=== PATIENT | male | born 1935 | race Caucasian/White ===

== ENCOUNTER 2018-03-19 14:34 | Outpatient (CLI) | payer MEDICARE, OTHER ==
[2018-03-19] MEDS ORDERED: Gadobenate Dimeglumine 529 MG/1 ML (20ML VIAL) ONE (14:57)
--- NOTE | 2018-03-19 16:29 | MRI ---
MRI BRAIN WITH AND WITHOUT GADOLINIUM CONTRAST: 03/19/18 HISTORY: Abnormal gait for three weeks. FINDINGS: There is no evidence of acute intracranial hemorrhage or infarct. Diffuse cortical atrophy and chroni c ischemic small vessel disease are apparent. There is no mass effect, shift of midline structures or abnormal areas of contrast enhancement. IMPRESSION: Prominent diffuse cortical atrophy. Moderate chronic ischemic small vessel disease. POS: [facility]
== END 2018-03-19 14:35 | disposition home or self-care (01) ==
LOC: TBSIIMAG 14:34
PROVIDERS: ATTEND Psychiatry & Neurology Neurology
DX: R26.9 Unspecified abnormalities of gait and mobility (principal); I82.409 Acute embolism and thrombosis of unspecified deep veins of unspecified lower extremity; G31.9 Degenerative disease of nervous system, unspecified; I67.82 Cerebral ischemia
CPT/HCPCS: 70553; 82565; A9579

== ENCOUNTER 2018-04-24 08:56 | Day surgery (SDC) | payer MEDICARE, OTHER ==
[2018-04-23 14:15] VITALS: BMI 25.7
[~2018-04-24 08:56] MED LIST: Prevnar 13-Val Conj/PF 0.5 ML SYRINGE IM ONE
[2018-04-24 09:35] VITALS: BP 127/78; TEMP 97.5
--- NOTE | 2018-04-24 13:08 | RAD ---
LUMBAR PUNCTURE: HISTORY: Gait disturbance. High volume tap requested. COMPARISON: None. EXPOSURE: 228.7 millicuries per m2 for 0.6 minutes. FINDINGS: Two view binder and wrapper packer lumbar spine radiograph demonstrates vacuum disk phenomenon at L5-S1. Five lumbar typ e vertebral bodies with preservation of vertebral body height. No fracture. Successful lumbar puncture. A total of 31.5 mL of clear CSF was aspirated. There were no immediate post procedure complications. TECHNIQUE: Consent obtained to perform a lumbar puncture for high volume tap. The patient's back was evaluated. The L2-L3 level was deemed appropriate. The skin was prepped and draped in a sterile fashion. Lid ocaine 1% buffered with sodium bicarbonate was used for local anesthesia. Under fluoroscopic guidanc e, a 20 gauge spinal needle was advanced into the CSF space. Opening pressure was 15 cm of water. A total of 31.5 mL of clear CSF was collected. The patient tolerated the procedure well. No immediat e or post procedure complications. IMPRESSION: 1. A total of 31.5 mL of clear cerebrospinal fluid was collected. 2. Opening pressure was 15 cm of water. POS: [facility]
== END 2018-04-24 12:40 | disposition home or self-care (01) ==
LOC: RAD 08:56
PROVIDERS: ATTEND Psychiatry & Neurology Neurology
PROC: 009U3ZX Drainage of Spinal Canal, Percutaneous Approach, Diagnostic (ICD-10-PCS; principal; 2018-04-24)
PROC: B01BYZZ Fluoroscopy of Spinal Cord using Other Contrast (ICD-10-PCS; 2018-04-24)
DX: R26.9 Unspecified abnormalities of gait and mobility (principal); R41.89 Other symptoms and signs involving cognitive functions and awareness; K21.9 Gastro-esophageal reflux disease without esophagitis; Z79.899 Other long term (current) drug therapy
CPT/HCPCS: 62270; 82945; 84157; 86592; 89051; 97110; 97139; G8978; G8979

== ENCOUNTER 2018-06-10 12:34 | Outpatient (CLI) | payer MEDICARE, OTHER ==
--- NOTE | 2018-06-10 12:52 | RAD ---
TWO VIEWS CHEST: Comparison: 02-02-17 History: Dyspnea. FINDINGS: Two views of the chest shows normal sized cardiomediastinal silhouette. Increased interstitial markin gs are present. Biapical pleural thickening is seen. There is no evidence of consolidation, mass, or pleural effusion. Degenerative changes are seen in the spine. IMPRESSION: No evidence of acute cardiopulmonary disease. POS: [facility]
== END 2018-06-10 12:35 | disposition home or self-care (01) ==
LOC: RAD 12:34
PROVIDERS: ATTEND Internal Medicine Pulmonary Disease
DX: R06.00 Dyspnea, unspecified (principal)
CPT/HCPCS: 71046

== ENCOUNTER 2018-09-25 12:49 | Outpatient (CLI) | payer MEDICARE, OTHER | END 2018-09-25 12:50 | disposition home or self-care (01) | LOC: CP 12:49 | PROVIDERS: ATTEND Internal Medicine Pulmonary Disease | DX: J84.112 Idiopathic pulmonary fibrosis (principal); I82.409 Acute embolism and thrombosis of unspecified deep veins of unspecified lower extremity | CPT/HCPCS: 36415; 85610; 94060; 94727; 94729 ==

== ENCOUNTER 2018-11-15 10:39 | Emergency (ER) | payer MEDICARE, OTHER ==
[2018-11-15] MEDS ORDERED: Cyclobenzaprine 10 MG TAB ONE (11:12)
[2018-11-15] MEDS ORDERED: Ibuprofen 600 MG TAB ONE (11:12)
== END 2018-11-15 11:17 | disposition home or self-care (01) ==
LOC: SCSER 10:39
DX: M54.5 Low back pain (principal); I10 Essential (primary) hypertension; Z86.718 Personal history of other venous thrombosis and embolism; Z79.01 Long term (current) use of anticoagulants
CPT/HCPCS: 99283

== ENCOUNTER 2019-01-31 08:57 | Inpatient (IN) | payer MEDICARE, OTHER ==
[2019-01-31 09:33] LABS: #Basophils 0.1 thou/uL (0.0-0.2); #Eosinphils 0.1 thou/uL (0.0-0.7); #Lymphocytes 0.8 thou/uL (1.20-3.40); #Monocytes 0.7 thou/uL (0.11-0.59); #Neutrophils 12.4 thou/uL (1.40-6.50); %Basophils 0.8 % (0.0-1.0); %Eosinophils 0.4 % (0.0-10.0); %Lymphocytes 5.3 % (21.0-51.0); %Monocytes 5.2 % (0.0-10.0); %Neutrophils 88.3 % (42.0-75.0); Mean Corpuscular HGB CONC 33.3 g/dL (32.0-36.0); Mean Corpuscular Hemoglobin 30.5 pg (27.0-31.0); Mean Corpuscular Volume 91.6 fL (78.0-98.0); Platelet Count 300 thou/uL (130-400); RBC Distribution Width 11.5 % (11.5-14.5); Red Blood Cell (RBC) Count 4.28 mill/uL (4.70-6.10); White Blood Cell (WBC) Count 14.1 thou/uL (4.8-10.8)
[2019-01-31 09:42] LABS: ALT (SGPT) 28 U/L (8-55); AST (SGOT) 101 U/L (5-34); Albumin 3.6 g/dL (3.4-4.8); Alkaline Phosphatase 86 U/L (40-150); Anion Gap 16 mmol/L (10-20); BUN (Urea Nitrogen) 18 mg/dL (8.4-25.7); Bilirubin, Total 0.9 mg/dL (0.2-1.2); Calc. Creatinine Clearance 0 mL/min (70-130); Calcium 8.8 mg/dL (7.8-10.44); Carbon Dioxide 22 mmol/L (23-31); Chloride 107 mmol/L (98-107); Estimated GFR-MDRD 80; Globulin 3.6 g/dL (2.4-3.5); Glucose 147 mg/dL (83-110); Lipase 22 U/L (8-78); Potassium 3.5 mmol/L (3.5-5.1); Protein, Total 7.2 g/dL (5.8-8.1); Sodium 141 mmol/L (136-145)
[2019-01-31] MEDS ORDERED: cefTRIAXone\\ROCEPHIN 2 GM VIAL ONE (09:45)
[2019-01-31] MEDS ORDERED: Sodium Chloride 0.9% 100 ML ONE ×2 (09:45→10:42)
--- NOTE | 2019-01-31 09:53 | RAD ---
CHEST 2 VIEWS: Date: 01/31/19 HISTORY: Difficulty breathing. Cough. COMPARISON: 01/24/19. FINDINGS: There are chronic changes of the lung parenchyma with superimposed infiltrate. No masses or consolida tion. No pleural effusion or pneumothorax. Normal cardiac silhouette. IMPRESSION: Infiltrate superimposed upon chronic fibrotic change. POS: [facility]
[2019-01-31 10:05] LABS: Prothrombin Time 47.5 SEC (12.0-14.7)
[2019-01-31 10:11] LABS: INR-International Normal Ratio 5.2
[2019-01-31 10:13] LABS: CKMB 78.3 ng/mL (0-6.6)
[2019-01-31] MEDS ORDERED: Aspirin Chewable 81 MG TAB ONE (10:37)
[2019-01-31] MEDS ORDERED: Cefepime 2 GM VIAL ONE (10:41)
[2019-01-31 13:01] VITALS: BMI 24.3
[2019-01-31 13:35] LABS: Lactic Acid 1.5 mmol/L (0.5-2.2)
[2019-01-31 13:50] LABS: Troponin I 15.767 ng/mL (< 0.028)
--- NOTE | 2019-01-31 14:13 | CON ---
DATE OF CONSULTATION: 01/31/2019 HISTORY OF PRESENT ILLNESS: This is an 83-year-old gentleman, who was seen before in the past. He moved from [place] with a diagnosis of pulmonary fibrosis, been there numerous times, and is on low-flow O2 and Breo inhaler once a day. He apparently went to see his primary care physician last week with symptoms of cough, shortness of breath, and chest pain. X-ray was taken and he was not told about any results. He is taking Coumadin, and from time to time, he has a bloody sputum. In fact, his INR is markedly elevated at 5.3. He has had more difficulty breathing. Now, he tells me that he is moving to [place] area in the next month to relocate. On most days, he can barely walk between 100 feet without getting markedly short of breath. PAST MEDICAL HISTORY: Pertinent for pulmonary fibrosis, DVT, and squamous cell carcinoma. SOCIAL/FAMILY HISTORY: Unremarkable. No alcohol or tobacco abuse. HOME MEDICATIONS: 1. Coumadin 3 mg. 2. Omeprazole 5. 3. Vitamins. 4. Advair inhaler. 5. B12. ALLERGIES: NONE. REVIEW OF SYSTEMS: Unremarkable. PHYSICAL EXAMINATION: VITAL SIGNS: On 100% his sats were anywhere from 96 to 100. His respirations are about 25, pulse 80, blood pressure 98. GENERAL: He is awake, alert, responsive, no edema. CHEST: Decreased breath sounds. Bilateral crackles. CARDIAC: Normal S1 and S2. No gallops. ABDOMEN: No mass. LABORATORY DATA: White count 14,000, H and H 13 and 39, and platelet count 300. INR is 5.2 and PT is 47.5. Lytes are normal. Troponin is elevated at 13.45. BNP is 344. EKG shows left axis nonspecific changes, but no acute injury seen. X-ray shows worsening extensive bilateral interstitial infiltrate that had been more pronounced in left base. IMPRESSION: Ghd-OA-vfxcedj elevation myocardial infarction, elevated troponin, extensive pulmonary fibrosis, worsening, with superimposed left-sided pneumonia, prolonged PT/INR, history of deep venous thrombosis in the past. PLAN: Started steroids, antibiotics, neb treatment. Await input from Cardiology. Prognosis is poor. We will discuss with family as they arrive. Consultation note, 70 minutes, 50% direct patient care. Job ID: [id number]
[2019-01-31] MEDS ORDERED: Bisacodyl 10 MG SUPP PR PRN (15:07)
[2019-01-31] MEDS ORDERED: Ondansetron PF 4 MG/2 ML Vial IVP PRN (15:07)
[2019-01-31] MEDS ORDERED: Acetaminophen 325 MG TAB PO PRN (15:07)
[2019-01-31] MEDS ORDERED: Acetaminophen 650 MG Suppository PR PRN (15:07)
[2019-01-31] MEDS ORDERED: Nitroglycerin 0.4 MG TAB (25 Tab Bottle) SL PRN (15:07)
[2019-01-31] MEDS ORDERED: Morphine 2 MG/ML SYRINGE SLOW IVP PRN (15:07)
[2019-01-31 15:47] LABS: Critical Call Chem Troponin I DECREASED
--- NOTE | 2019-01-31 16:13 | CON ---
DATE OF CONSULTATION: 01/31/2019 REASON FOR CONSULTATION: Elevated troponin. HISTORY OF PRESENT ILLNESS: Mr. Goncalves is an 83-year-old gentleman, who has no previous history of underlying coronary artery disease. He does have a history of pulmonary fibrosis. He states he has had increased shortness of breath and cough over the last three months. He does have a left-sided lower rib chest pain from coughing. Otherwise, no current symptoms. His shortness of breath progressed, and he decided to go to the emergency room. Initially, it was felt he had pneumonia. He had significant diffuse infiltrates present, likely due to CHF. Again, he has no previous history of underlying coronary artery disease or CHF. He has been seen and evaluated by Dr. Champ Aceves in the past. PAST MEDICAL HISTORY: Pulmonary fibrosis, previous DVT on anticoagulation therapy, squamous cell carcinoma. MEDICATIONS: Include omeprazole, Coumadin, vitamin, Advair, B12. ALLERGIES: NONE. REVIEW OF SYSTEMS: A 10-point review of systems is reviewed and as above, negative. PHYSICAL EXAMINATION: GENERAL: Patient is a pleasant male, who is in no acute distress. The patient appears their stated age. VITAL SIGNS: Blood pressure 130/83, pulse 117, temperature 99.2. NEUROLOGIC: The patient is alert and oriented x3 with no focal neurologic deficits. HEENT: Sclerae without icterus. Mouth has moist mucous membranes with normal pallor. NECK: No JVD. Carotid upstroke brisk. No bruits bilaterally. LUNGS: Crackles noted bilaterally. BACK: No scoliosis or kyphosis. CARDIAC: Regular rate and rhythm with normal S1 and S2. No S3 or S4 noted. No significant rubs, murmurs, thrills, or gallops noted throughout the precordium. PMI is not displaced. There is no parasternal heave. ABDOMEN: Soft, nontender, nondistended. No peritoneal signs present. No hepatosplenomegaly. No abnormal striae. EXTREMITIES: 2+ femoral and 2+ dorsalis pedis pulses. No cyanosis, clubbing, or edema. SKIN: No gross abnormalities. PERTINENT LABORATORY DATA: Hemoglobin 13, hematocrit 39.2, white blood cell count 14.1, creatinine 0.91. CK-MB of 78. Peak troponin 15. EKG; normal sinus rhythm and nonspecific ST-T wave changes. INR 5.3. IMPRESSION: 1. Elevated troponin. 2. Shortness of breath. 3. Pulmonary fibrosis. RECOMMENDATIONS: Mr. Goncalves currently has no symptoms suggesting angina. His EKG does not show any acute changes. At this point, recommend conservative therapy. His BNP also is not significantly elevated at 344. I did discuss case at length with Dr. Champ Aecves. He does not think his pulmonary fibrosis has progressed to marked pulmonary fibrosis. At this point, we will challenge with IV Lasix and repeat his chest x-ray on Sunday. We would like to have his INR decreased prior to proceeding with angiography. I did discuss conservative versus a more aggressive approach. After discussing risks and benefits of both, family has opted for proceeding with a more aggressive approach such as coronary angiography. I will hold off on heparin given elevated INR. We will recheck in a.m. There is no active bleeding present. Job ID: [id number] MTDD
--- NOTE | 2019-01-31 16:18 | HP ---
PRIMARY CARE PROVIDER: Dr. Benedict Dee. CHIEF COMPLAINT: Cough. HISTORY OF PRESENT ILLNESS: Mr. Goncalves is a pleasant 83-year-old gentleman, who was seen at [facility] following transfer from [facility] Room on January 31, 2019. The patient has a history of pulmonary fibrosis and uses home oxygen at 2 L/minute. He reports chronic cough that worsened over the last 3 weeks. The cough is productive of yellow sputum. He also reports having blood in the sputum on two occasions. He reported that his daughter had flu-like symptoms 3 weeks ago. He denies any nausea or vomiting. He does report left-sided pleuritic chest pain. He denies any abdominal pain. He presented to the emergency room because of ongoing cough. He also reports shortness of breath that is worse with exertion. REVIEW OF SYSTEMS: All other systems reviewed and found to be negative. PAST MEDICAL HISTORY: Deep vein thrombosis, pulmonary fibrosis. SURGICAL HISTORY: Prostatectomy and left ear squamous cell carcinoma surgery. SOCIAL HISTORY: No history of tobacco use or recreational drug use. Rare alcohol use. FAMILY HISTORY: No family history of premature coronary artery disease. ALLERGIES: NO KNOWN DRUG ALLERGIES. CURRENT MEDICATIONS: 1. Warfarin 3 mg daily, none on Sunday, and 4.5 mg on Sunday and Sunday. 2. Flexeril 10 mg every 8 hours as needed. CODE STATUS: I discussed his code status. He is a full code. PHYSICAL EXAMINATION: GENERAL: On examination, Mr. Goncalves is awake and alert, in moderate respiratory distress. VITAL SIGNS: Blood pressure is 132/91, pulse 109, respiratory rate 25, and oxygen saturation 91% on Ventimask. He is afebrile. EYES: No scleral icterus, no conjunctival pallor. ENT: Moist mucosal membranes, no oropharyngeal erythema or exudates. NECK: Supple, nontender, trachea is midline. RESPIRATORY: Accessory muscles of breathing are active. Chest wall movements are symmetric bilaterally. He has bilateral crackles. CARDIOVASCULAR: S1 and S2 are heard, tachycardic and regular. Peripheral pulses are palpable. No carotid bruit, no pericardial rub. ABDOMEN: Soft, nontender, bowel sounds heard, no hepatomegaly, no splenomegaly. NEUROLOGIC: Cranial nerves 2 through 12 are intact, deep tendon reflexes 2+. MUSCULOSKELETAL: Power is 5/5 in all four extremities. LYMPHATIC: No cervical lymphadenopathy. SKIN: No rashes or subcutaneous nodules. PSYCHIATRIC: Normal mood, normal affect, the patient is oriented to person, place, and time. DIAGNOSTIC STUDIES: Mr. Goncalves's labs and investigations were reviewed. I reviewed his electrocardiogram, which shows sinus tachycardia, no ST changes to suggest an acute coronary syndrome. I also reviewed his chest x-ray, which shows pulmonary fibrosis with pulmonary infiltrate. He has leukocytosis with 14,100 white cells, of which 88% are neutrophils, normocytic anemia with hemoglobin 13, normal platelet count, INR elevated at 5.2, normal sodium, normal potassium, elevated AST of 101, normal total bilirubin, normal ALT, normal lipase, elevated BNP of 344, and elevated troponin-I of 13.458. Lactic acid is elevated at 4. ASSESSMENT AND PLAN: Mr. Goncalves is a pleasant 83-year-old gentleman, who was seen at [facility] on January 31, 2019. His problem list includes: 1. Acute on chronic hypoxic respiratory failure: Mr. Goncalves is presenting with acute on chronic hypoxic respiratory failure, most likely secondary to pneumonia. He will be admitted to [facility] for further management. 2. Pneumonia: He has been started on cefepime, which I will continue. He will also receive bronchodilators and steroids. 3. Pwf-AK-uckrmprto myocardial infarction: Jel-SC-rmlifcrux myocardial infarction versus qjd-XL-odnxnkiwb myocardial infarction type 2 secondary to demand ischemia. We will check 2D echocardiogram. Cardiology Service is being consulted. The patient has received aspirin at [facility] Room, which I will continue. 4. Coagulopathy: Hold warfarin for now. I request Pharmacy to manage warfarin. 5. Lactic acidosis: Likely secondary to pneumonia, recheck lactic acid level. 6. Elevated AST: Isolated elevation of AST in the setting of otherwise normal liver profile, recheck LFTs. Many thanks for allowing me to participate in your patient's care. Please feel free to contact me with any questions or concerns. LEVEL OF RISK: High. LEVEL OF COMPLEXITY: High. Job ID: [id number]
[2019-01-31] MEDS ORDERED: Guaifenesin DM 100-10/5 ML UDCUP PO PRN (16:38)
[2019-01-31] MEDS: Benzonatate 100 MG CAP PO SCH ×2 (16:46→20:44)
[2019-01-31] MEDS ORDERED: Phytonadione 3 MG in Sodium Chloride 0.9% 50 ML IVPB SCH (17:00)
[2019-01-31] MEDS: methylPREDNISolone Sod Succ 40 MG VIAL IVP SCH ×2 (17:09→23:58)
[2019-01-31] MEDS ORDERED: Furosemide 40 MG/4 ML VIAL SLOW IVP SCH (17:30)
[2019-01-31 18:47] LABS: CKMB 60.6 ng/mL (0-6.6)
[2019-01-31] MEDS: Mometasone/Formoterol 120 PUFF INHALER INH SCH (19:02)
[2019-01-31] MEDS: Cefepime 2 GM in Sodium Chloride 0.9% 100 ML IVPB SCH (20:44)
[2019-02-01 04:35] LABS: #Lymphocytes 0.5 thou/uL (1.20-3.40); #Monocytes 0.2 thou/uL (0.11-0.59); #Neutrophils 13.4 thou/uL (1.40-6.50); %Basophils 0.1 % (0.0-1.0); %Eosinophils 0.2 % (0.0-10.0); %Lymphocytes 3.6 % (21.0-51.0); %Monocytes 1.6 % (0.0-10.0); %Neutrophils 94.4 % (42.0-75.0); Mean Corpuscular HGB CONC 33.2 g/dL (32.0-36.0); Mean Corpuscular Hemoglobin 31.3 pg (27.0-31.0); Mean Corpuscular Volume 94.3 fL (78.0-98.0); Mean Platelet Volume 7.5 fL (7.4-10.4); Platelet Count 264 thou/uL (130-400); RBC Distribution Width 11.5 % (11.5-14.5); Red Blood Cell (RBC) Count 3.83 mill/uL (4.70-6.10); White Blood Cell (WBC) Count 14.2 thou/uL (4.8-10.8)
[2019-02-01 04:50] LABS: INR-International Normal Ratio 2.5; Prothrombin Time 26.7 SEC (12.0-14.7)
[2019-02-01 04:58] LABS: Anion Gap 15 mmol/L (10-20); BUN (Urea Nitrogen) 19 mg/dL (8.4-25.7); Calc. Creatinine Clearance 65 mL/min (70-130); Calcium 8.3 mg/dL (7.8-10.44); Carbon Dioxide 21 mmol/L (23-31); Cardiac Risk 2.9 (Less than 4.5); Chloride 107 mmol/L (98-107); Cholesterol 106 mg/dl (< 200 Desired); Estimated GFR-MDRD 86; Glucose 167 mg/dL (83-110); HDL Cholesterol 36 mg/dL (>60 Neg Risk); LDL Cholesterol, Calculated 58 mg/dL; Potassium 3.5 mmol/L (3.5-5.1); Sodium 139 mmol/L (136-145); Triglycerides 60 mg/dL (Less than 150)
[2019-02-01 05:01] LABS: ALT (SGPT) 31 U/L (8-55); AST (SGOT) 102 U/L (5-34); Albumin 3.3 g/dL (3.4-4.8); Alkaline Phosphatase 98 U/L (40-150); Bilirubin, Direct 0.4 mg/dL (0.1-0.3); Protein, Total 6.4 g/dL (5.8-8.1)
[2019-02-01] MEDS: methylPREDNISolone Sod Succ 40 MG VIAL IVP SCH ×3 (05:15→17:38)
[2019-02-01] MEDS: Mometasone/Formoterol 120 PUFF INHALER INH SCH ×2 (06:46→19:27)
--- NOTE | 2019-02-01 08:27 | PDOC.CTH ---
Cardiology Progress Note - Subjective Better this am. No current complaints. Diuresing - Objective Vital Signs Temp Pulse Resp Pulse Ox 02/01/19 07:40 96 02/01/19 07:01 97.6 F 02/01/19 06:51 94 L 02/01/19 06:46 95 20 98 02/01/19 06:35 98 02/01/19 06:30 95 20 98 02/01/19 04:00 97.2 F L 02/01/19 02:14 95 01/31/19 23:59 107 H 22 H 97 01/31/19 23:00 97.6 F Weight 142 lb 4.8 oz 01/31/19 02/01/19 02/02/19 06:59 06:59 07:59 Intake Total 630 Output Total 1725 Balance -1095 - Physical Examination General/Neuro: alert & oriented x3, NAD Neck: carotid US brisk, no JVD present Lungs: other: (coarse and fine crackles present) - Labs Result Diagrams: 02/01/19 04:24 02/01/19 04:24 Troponin/CKMB CK-MB (CK-2) 60.6 ng/mL (0-6.6) H* 01/31/19 18:18 Troponin I 14.470 ng/mL (< 0.028) H* 01/31/19 15:09 - Assessment/Plan [id number] Pulmonary fibrosis Ischemia CM Continue to diurese Plan is to proceed with angio once his INR <2.0 No current symptoms of angina Increase troponin with downgoing CKMB yesterday Discussed the R/B with pt. and family Pt is agreeable and would like to proceed with angio. Recommend DCS. Will use coumadin as Rx and add plavix and ASA. Dc ASA after a few weeks.
[2019-02-01] MEDS: Benzonatate 100 MG CAP PO SCH ×3 (09:02→20:33)
[2019-02-01] MEDS: Lactinex Tablet PO SCH (09:02)
[2019-02-01] MEDS: Multivit, Therapeutic 1 TAB PO SCH (09:03)
[2019-02-01] MEDS: Aspirin 325 mg Enteric Coated Tablet PO SCH (09:03)
[2019-02-01] MEDS: Cefepime 2 GM in Sodium Chloride 0.9% 100 ML IVPB SCH ×2 (09:03→20:33)
[2019-02-01] MEDS: Stress 600 With Zinc 1 TAB PO SCH (09:40)
--- NOTE | 2019-02-01 11:26 | PRG ---
DATE OF SERVICE: 02/01/2019 SUBJECTIVE: This morning, he said he is feeling better, still coughing some bloody sputum. His EF was measured at 30% to 35%. He said he is slightly less short of breath. OBJECTIVE: VITAL SIGNS: Blood pressure 124/80, sats on high-flow O2 35 L is 98%, pulse 104, respiratory rate 20. CHEST: Bilateral rhonchi and crackles. CARDIAC: Normal S1, S2. No gallops. ABDOMEN: No masses. INR is 2.5, PT is 26. White count 14,000, H and H 12 and 36. His troponin is 14. CK is 60. IMPRESSION: 1. Congestive heart failure, cardiomyopathy. 2. Pulmonary fibrosis. 3. Possibly pneumonia, hemoptysis, history of deep venous thrombosis. PLAN: Continue neb treatments, empiric antibiotics, supportive care. We will follow cath tomorrow. Job ID: [id number]
[2019-02-01] MEDS ORDERED: Communication Order-Pharmacy FS SCH (11:45)
--- NOTE | 2019-02-01 11:53 | RAD ---
RADIOGRAPH CHEST 1 VIEW: Date: 02/01/2019. Time: 11:18 a.m. HISTORY: An 83-year-old male with congestive heart failure. COMPARISON: 01/31/2019, 9:32 a.m. FINDINGS: Diffuse bilateral interstitial densities. More focal alveolar infiltrate involving left mid and lowe r lung zones appear slightly worse on the current study compared to the previous. No pneumothorax. IMPRESSION: 1. Interval worsening of now alveolar infiltrates in left lower and mid lung zones, worrisome for le ft-sided pneumonia. 2. Bilateral interstitial densities, which could represent chronic fibrotic changes, mild pulmonary interstitial edema, or a combination of both. 3. Recommend continued followup. EDDIE [] POS: [facility]
[2019-02-01] MEDS: Sodium Chloride 0.9% 1,000 ML IV SCH ×2 (12:41→22:46)
--- NOTE | 2019-02-01 14:21 | PDOC.PN ---
- Subjective Encounter Start Date: 02/01/19 Encounter Start Time: 09:20 Pt seen for followup re: acute on chronic hypoxic respiratory failure. Says he feels slightly better. - Objective Resuscitation Status - Order Detail: 01/31/19 15:07 Resuscitation Status Routine Resuscitation Status: FULL: Full Resuscitation Discussed with: ana maria NAIK Reviewed: Yes Vital Signs & Weight: Vital Signs (12 hours) Temp Pulse Resp Pulse Ox 02/01/19 13:45 115 H 24 H 94 L 02/01/19 11:18 97.8 F 02/01/19 07:40 96 02/01/19 07:01 97.6 F 02/01/19 06:51 94 L 02/01/19 06:46 95 20 98 02/01/19 06:35 98 02/01/19 06:30 95 20 98 02/01/19 04:00 97.2 F L Weight Weight 142 lb 4.8 oz Most Recent Monitor Data Heart Rate from ECG 114 NIBP 133/100 NIBP BP-Mean 111 Respiration from ECG 31 SpO2 92 I&O: 01/31/19 02/01/19 02/02/19 06:59 06:59 07:59 Intake Total 630 Output Total 1725 Balance -1095 Result Diagrams: 02/01/19 04:24 02/01/19 04:24 EKG Reviewed by me: Yes (Tele: NSR) Phys Exam - Physical Examination Constitutional: NAD HEENT: moist MMs, sclera anicteric, oral pharynx no lesions, 2+ tonsils Neck: no nodes, no JVD, supple, full ROM Oracio crackles Cardiovascular: RRR, no rub S1, S2 Gastrointestinal: soft, non-tender, no distention, positive bowel sounds Neurological: moves all 4 limbs Psychiatric: normal affect, A&O x 3 Dx/Plan (1) Acute on chronic respiratory failure with hypoxia Code(s): J96.21 - ACUTE AND CHRONIC RESPIRATORY FAILURE WITH HYPOXIA Status: Acute Comment: secondary to pneumonia and CHF (2) Pneumonia Code(s): J18.9 - PNEUMONIA, UNSPECIFIED ORGANISM Status: Acute Comment: continue antibiotics as below (3) NSTEMI (non-ST elevated myocardial infarction) Code(s): I21.4 - NON-ST ELEVATION (NSTEMI) MYOCARDIAL INFARCTION Status: Acute Comment: For cath on Sunday (4) Coagulopathy Status: Acute Comment: INR improved to 2.5 (5) Acute systolic CHF (congestive heart failure), NYHA class 3 Code(s): I50.21 - ACUTE SYSTOLIC (CONGESTIVE) HEART FAILURE Status: Acute Comment: continue diuretics (6) Pulmonary fibrosis Code(s): J84.10 - PULMONARY FIBROSIS, UNSPECIFIED Status: Chronic - Plan plan discussed w/ family, continue antibiotics * . Review of Systems - Review of Systems Constitutional: weakness. negative: fever, chills, sweats, malaise Respiratory: Cough, Hemoptysis, SOB with Excertion, Sputum. negative: Dry, Shortness of Breath, Pleuritic Pain, Wheezing Cardiovascular: orthopnea. negative: chest pain, palpitations, paroxysmal nocturnal dyspnea, edema, light headedness Gastrointestinal: negative: Nausea, Vomiting, Abdominal Pain, Diarrhea, Constipation, Melena, Hematochezia Genitourinary: negative: Dysuria, Frequency, Incontinence, Hematuria, Retention Skin: negative: Rash, Lesions, [place], Bruising - Medications/Allergies Allergies/Adverse Reactions: Allergies Allergy/AdvReac Type Severity Reaction Status Date / Time No Known Allergies Allergy Verified 01/31/19 12:55 Medications: Current Medications Acetaminophen (Tylenol) 650 mg PO Q4H PRN PRN Reason: Headache/Fever/Mild Pain (1-3) Last Admin: 01/31/19 20:44 Dose: 650 mg Acetaminophen (Tylenol) 650 mg NC Q4H PRN PRN Reason: Headache/Fever/Mild Pain (1-3) Acidophilus (Floranex) 1 tab PO DAILY FOR[facility]LY [facility], [facility] Last Admin: 02/01/19 09:02 Dose: 1 tab Albuterol/Ipratropium (Duoneb) 3 ml NEB [id number] [facility], [facility] Last Admin: 02/01/19 13:45 Dose: 3 ml Aspirin (Ecotrin) 325 mg PO DAILY [facility], [facility] Last Admin: 02/01/19 09:03 Dose: 325 mg Benzonatate (Tessalon) 100 mg PO TID [facility] Last Admin: 02/01/19 09:02 Dose: 100 mg Bisacodyl (Dulcolax) 10 mg NC DAILYPRN PRN PRN Reason: Constipation Cholecalciferol (Vitamin D3) 1,000 units PO DAILY [facility], [facility] Last Admin: 02/01/19 09:03 Dose: 1,000 units Furosemide (Lasix) 60 mg SLOW IVP 0600,1400 [facility], [facility] Guaifenesin/Dextromethorphan (Robitussin Dm) 5 ml PO TID PRN PRN Reason: Cough Cefepime HCl 2 gm/ Sodium (Chloride) 100 mls @ 200 mls/hr IVPB Q12HR [facility], [facility] Last Admin: 02/01/19 09:03 Dose: 100 mls Sodium Chloride (Normal Saline 0.9%) 1,000 mls @ 100 mls/hr IV .Q10H [facility], [facility] Last Admin: 02/01/19 12:41 Dose: 1,000 mls Methylprednisolone Sodium Succinate (Solu-Medrol) 40 mg IVP Q6HR [facility] Last Admin: 02/01/19 11:31 Dose: 40 mg Miscellaneous Medication (Pharmacy To Dose) 1 each PO PRN PRN PRN Reason: Pharmacy to dose Miscellaneous Medication (Pharmacy To Dose) 1 each PO PRN PRN PRN Reason: Pharmacy to dose Mometasone Furoate/Formoterol Fumar (Dulera 200 Mcg/5 Mcg Inhaler) 2 puff INH BID-RT [facility] Last Admin: 02/01/19 06:46 Dose: 2 puff Morphine Sulfate (Morphine) 2 mg SLOW IVP Q5MIN PRN PRN Reason: Chest Pain Multivitamins (Theragran) 1 tab PO DAILY [facility] Last Admin: 02/01/19 09:03 Dose: 1 tab Multivitamins/Zinc (Stress 600 With Zinc) 1 tab PO DAILY [facility] Last Admin: 02/01/19 09:40 Dose: 1 tab Nitroglycerin (Nitrostat) 0.4 mg SL Q5MIN PRN PRN Reason: Chest Pain Ondansetron HCl (Zofran) 4 mg IVP Q6H PRN PRN Reason: Nausea/Vomiting Pantoprazole Sodium (Protonix) 40 mg PO DAILY [facility] Last Admin: 02/01/19 09:03 Dose: 40 mg
[2019-02-01] MEDS: Furosemide 40 MG/4 ML VIAL SLOW IVP SCH (14:32)
[2019-02-02] MEDS: methylPREDNISolone Sod Succ 40 MG VIAL IVP SCH ×4 (00:21→17:58)
[2019-02-02 05:27] LABS: INR-International Normal Ratio 2.4; Prothrombin Time 26.3 SEC (12.0-14.7)
[2019-02-02 05:51] LABS: Band 15 % (5-11); Lymphocytes 2 % (21-51); MDiff Complete? YES; Mean Corpuscular HGB CONC 32.8 g/dL (32.0-36.0); Mean Corpuscular Hemoglobin 30.8 pg (27.0-31.0); Mean Corpuscular Volume 94.1 fL (78.0-98.0); Mean Platelet Volume 7.9 fL (7.4-10.4); Monocytes 4 % (0-10); Neutrophil 79 % (42-75); Platelet Count 276 thou/uL (130-400); Platelet Morphology Comment Appears Adequate; RBC Distribution Width 11.7 % (11.5-14.5); RBC Morphology Normal; Red Blood Cell (RBC) Count 4.22 mill/uL (4.70-6.10); White Blood Cell (WBC) Count 23.4 thou/uL (4.8-10.8)
[2019-02-02 05:52] LABS: Anion Gap 16 mmol/L (10-20); BUN (Urea Nitrogen) 28 mg/dL (8.4-25.7); Calc. Creatinine Clearance 49 mL/min (70-130); Calcium 8.5 mg/dL (7.8-10.44); Carbon Dioxide 25 mmol/L (23-31); Chloride 103 mmol/L (98-107); Estimated GFR-MDRD 67; Glucose 203 mg/dL (83-110); Sodium 141 mmol/L (136-145)
[2019-02-02 05:55] LABS: Potassium 2.9 mmol/L (3.5-5.1)
[2019-02-02] MEDS: Furosemide 40 MG/4 ML VIAL SLOW IVP SCH ×2 (06:38→14:49)
[2019-02-02] MEDS: Benzonatate 100 MG CAP PO SCH ×3 (06:40→20:51)
[2019-02-02] MEDS: Multivit, Therapeutic 1 TAB PO SCH (06:40)
[2019-02-02] MEDS: Aspirin 325 mg Enteric Coated Tablet PO SCH (06:40)
[2019-02-02] MEDS: Lactinex Tablet PO SCH (06:40)
[2019-02-02] MEDS: Sodium Chloride 0.9% 1,000 ML IV SCH ×2 (06:41→17:59)
[2019-02-02] MEDS: Mometasone/Formoterol 120 PUFF INHALER INH SCH ×2 (07:10→22:07)
--- NOTE | 2019-02-02 08:46 | PDOC.CTH ---
Cardiology Progress Note - Subjective Had difficlut night. No sleep. Continues with high flow O2 - Objective Vital Signs Temp Pulse Resp Pulse Ox 02/02/19 07:57 94 L 02/02/19 07:13 97.3 F L 02/02/19 07:10 105 H 24 H 93 L 02/02/19 07:02 93 L 02/02/19 07:00 105 H 24 H 93 L 02/02/19 04:00 97.7 F 02/02/19 03:24 91 L 02/02/19 00:00 97.7 F 02/01/19 23:35 106 H 21 H 90 L Weight 142 lb 4.8 oz 02/01/19 02/02/19 02/03/19 05:59 06:59 06:59 Intake Total Output Total Balance - Physical Examination General/Neuro: alert & oriented x3, NAD Neck: carotid US brisk, no JVD present Lungs: other: (crackles better) Heart: PMI normal, RRR Abdomen: no HSM, NT/ND, soft Extremities: + femoral B - Labs Result Diagrams: 02/02/19 04:08 02/02/19 04:08 Troponin/CKMB CK-MB (CK-2) 60.6 ng/mL (0-6.6) H* 01/31/19 18:18 Troponin I 14.470 ng/mL (< 0.028) H* 01/31/19 15:09 - Assessment/Plan SD type I Pulmonary fibrosis Ischemia CM Pt continues to require high flow oxygen No current symptoms of angina Continue to diurese\ Add lovenox now that INR has decreased plan on angio in am
[2019-02-02] MEDS ORDERED: Enoxaparin Sodium 60 MG/0.6 ML SYRINGE SC SCH (09:00)
[2019-02-02] MEDS: Cefepime 2 GM in Sodium Chloride 0.9% 100 ML IVPB SCH ×2 (09:40→20:51)
[2019-02-02] MEDS: Stress 600 With Zinc 1 TAB PO SCH (09:40)
--- NOTE | 2019-02-02 11:28 | PRG ---
DATE OF SERVICE: 02/02/2019 SUBJECTIVE: This morning, he is better, he is less short of breath, still requiring high-flow O2 at 60 L to maintain saturation of 90%. OBJECTIVE: VITAL SIGNS: Blood pressure 120/80, respiratory rate 18, pulse 80. CHEST: Decreased breath sounds. No wheezing. Bilateral crackles. CARDIAC: Normal S1, S2. No gallops. ABDOMEN: No masses. LABORATORY DATA: White count 23,000. All cultures are negative. ASSESSMENT: TN, CHF, pulmonary fibrosis, superimposed pneumonia. He is on Maxipime, neb treatments, steroids. Plan is to undergo cardiac cath in the next day or two. Job ID: [id number]
--- NOTE | 2019-02-02 14:05 | PDOC.PN ---
- Subjective Encounter Start Date: 02/02/19 Encounter Start Time: 10:40 Pt seen for followup re; acute on chronic hypoxic respiratory failure. Had confusion last night, now resolved. - Objective Resuscitation Status - Order Detail: 01/31/19 15:07 Resuscitation Status Routine Resuscitation Status: FULL: Full Resuscitation Discussed with: patient HEENA Reviewed: Yes Vital Signs & Weight: Vital Signs (12 hours) Temp Pulse Resp Pulse Ox 02/02/19 12:00 96.8 F L 02/02/19 11:02 90 L 02/02/19 07:57 94 L 02/02/19 07:13 97.3 F L 02/02/19 07:10 105 H 24 H 93 L 02/02/19 07:02 93 L 02/02/19 07:00 105 H 24 H 93 L 02/02/19 04:00 97.7 F 02/02/19 03:24 91 L Weight Weight 142 lb 4.8 oz Most Recent Monitor Data Heart Rate from ECG 111 NIBP 102/72 NIBP BP-Mean 82 Respiration from ECG 32 SpO2 89 I&O: 02/01/19 02/02/19 02/03/19 05:59 06:59 06:59 Intake Total Output Total Balance Result Diagrams: 02/02/19 04:08 02/02/19 04:08 EKG Reviewed by me: Yes (Tele: NSR) Phys Exam - Physical Examination Constitutional: NAD HEENT: moist MMs, sclera anicteric, oral pharynx no lesions, 2+ tonsils Neck: no nodes, no JVD, supple, full ROM Oracio crackles Cardiovascular: RRR, no rub S1, S2 Gastrointestinal: soft, non-tender, no distention, positive bowel sounds Neurological: moves all 4 limbs Psychiatric: normal affect, A&O x 3 Dx/Plan (1) Acute on chronic respiratory failure with hypoxia Code(s): J96.21 - ACUTE AND CHRONIC RESPIRATORY FAILURE WITH HYPOXIA Status: Acute Comment: Improving, secondary to pneumonia and CHF (2) Pneumonia Code(s): J18.9 - PNEUMONIA, UNSPECIFIED ORGANISM Status: Acute Comment: Improving, continue intravenous antibiotics as below (3) NSTEMI (non-ST elevated myocardial infarction) Code(s): I21.4 - NON-ST ELEVATION (NSTEMI) MYOCARDIAL INFARCTION Status: Acute Comment: For cath tomorrow (4) Coagulopathy Status: Acute Comment: INR 2.4 today (5) Acute systolic CHF (congestive heart failure), NYHA class 3 Code(s): I50.21 - ACUTE SYSTOLIC (CONGESTIVE) HEART FAILURE Status: Acute Comment: continue diuretics (6) Pulmonary fibrosis Code(s): J84.10 - PULMONARY FIBROSIS, UNSPECIFIED Status: Chronic - Plan plan discussed w/ family, continue antibiotics, out of bed/ambulate * . Review of Systems - Review of Systems Constitutional: negative: fever, chills, sweats, weakness, malaise Respiratory: Cough, Dry, SOB with Excertion. negative: Shortness of Breath, Hemoptysis, Pleuritic Pain, Sputum, Wheezing Cardiovascular: negative: chest pain, palpitations, orthopnea, paroxysmal nocturnal dyspnea, edema, light headedness Gastrointestinal: negative: Nausea, Vomiting, Abdominal Pain, Diarrhea, Constipation, Melena, Hematochezia Genitourinary: negative: Dysuria, Frequency, Incontinence, Hematuria, Retention - Medications/Allergies Allergies/Adverse Reactions: Allergies Allergy/AdvReac Type Severity Reaction Status Date / Time No Known Allergies Allergy Verified 01/31/19 12:55 Medications: Current Medications Acetaminophen (Tylenol) 650 mg PO Q4H PRN PRN Reason: Headache/Fever/Mild Pain (1-3) Last Admin: 01/31/19 20:44 Dose: 650 mg Acetaminophen (Tylenol) 650 mg AL Q4H PRN PRN Reason: Headache/Fever/Mild Pain (1-3) Acidophilus (Floranex) 1 tab PO DAILY [facility] Last Admin: 02/02/19 06:40 Dose: 1 tab Albuterol/Ipratropium (Duoneb) 3 ml NEB [id number] [facility] Last Admin: 02/02/19 07:00 Dose: 3 ml Aspirin (Ecotrin) 325 mg PO DAILY [facility] Last Admin: 02/02/19 06:40 Dose: 325 mg Benzonatate (Tessalon) 100 mg PO TID [facility] Last Admin: 02/02/19 06:40 Dose: 100 mg Bisacodyl (Dulcolax) 10 mg AL DAILYPRN PRN PRN Reason: Constipation Cholecalciferol (Vitamin D3) 1,000 units PO DAILY [facility] Last Admin: 02/02/19 06:40 Dose: 1,000 units Furosemide (Lasix) 60 mg SLOW IVP 0600,1400 [facility] Last Admin: 02/02/19 06:38 Dose: 60 mg Guaifenesin/Dextromethorphan (Robitussin Dm) 5 ml PO TID PRN PRN Reason: Cough Cefepime HCl 2 gm/ Sodium (Chloride) 100 mls @ 200 mls/hr IVPB Q12HR [facility] Last Admin: 02/02/19 09:40 Dose: 100 mls Sodium Chloride (Normal Saline 0.9%) 1,000 mls @ 100 mls/hr IV .Q10H [facility] Last Admin: 02/02/19 06:41 Dose: 1,000 mls Methylprednisolone Sodium Succinate (Solu-Medrol) 40 mg IVP Q6HR [facility] Last Admin: 02/02/19 11:35 Dose: 40 mg Metolazone (Zaroxolyn) 2.5 mg PO 0830 [facility] Miscellaneous Medication (Pharmacy To Dose) 1 each PO PRN PRN PRN Reason: Pharmacy to dose Mometasone Furoate/Formoterol Fumar (Dulera 200 Mcg/5 Mcg Inhaler) 2 puff INH BID-RT [facility] Last Admin: 02/02/19 07:10 Dose: 2 puff Morphine Sulfate (Morphine) 2 mg SLOW IVP Q5MIN PRN PRN Reason: Chest Pain Multivitamins (Theragran) 1 tab PO DAILY [facility] Last Admin: 02/02/19 06:40 Dose: 1 tab Multivitamins/Zinc (Stress 600 With Zinc) 1 tab PO DAILY [facility] Last Admin: 02/02/19 09:40 Dose: 1 tab Nitroglycerin (Nitrostat) 0.4 mg SL Q5MIN PRN PRN Reason: Chest Pain Ondansetron HCl (Zofran) 4 mg IVP Q6H PRN PRN Reason: Nausea/Vomiting Pantoprazole Sodium (Protonix) 40 mg PO DAILY [facility] Last Admin: 02/02/19 06:41 Dose: 40 mg Warfarin Sodium (Coumadin) 3 mg PO 1700 [facility]
[2019-02-02 14:33] LABS: Potassium 3.3 mmol/L (3.5-5.1)
[2019-02-02] MEDS ORDERED: Warfarin Sodium 3 MG TAB PO SCH (17:00)
[2019-02-03] MEDS: methylPREDNISolone Sod Succ 40 MG VIAL IVP SCH ×4 (00:18→19:05)
[2019-02-03] MEDS: Sodium Chloride 0.9% 1,000 ML IV SCH ×2 (05:41→16:22)
[2019-02-03] MEDS: Furosemide 40 MG/4 ML VIAL SLOW IVP SCH ×2 (05:44→16:24)
[2019-02-03] MEDS: Benzonatate 100 MG CAP PO SCH ×3 (05:46→20:28)
[2019-02-03] MEDS: Multivit, Therapeutic 1 TAB PO SCH (05:46)
[2019-02-03] MEDS: Aspirin 325 mg Enteric Coated Tablet PO SCH (05:46)
[2019-02-03] MEDS: Stress 600 With Zinc 1 TAB PO SCH (05:46)
[2019-02-03] MEDS: Lactinex Tablet PO SCH (05:47)
[2019-02-03] MEDS: Metolazone 2.5 MG TAB PO SCH (05:47)
[2019-02-03] MEDS: Mometasone/Formoterol 120 PUFF INHALER INH SCH ×2 (06:29→19:54)
[2019-02-03 06:45] LABS: INR-International Normal Ratio 2.7; Prothrombin Time 28.7 SEC (12.0-14.7)
[2019-02-03 06:56] LABS: Hemoglobin 13.3 g/dL (14.0-18.0); Mean Corpuscular HGB CONC 31.1 g/dL (32.0-36.0); Mean Corpuscular Hemoglobin 29.2 pg (27.0-31.0); Mean Corpuscular Volume 93.9 fL (78.0-98.0); Mean Platelet Volume 7.8 fL (7.4-10.4); Platelet Count 276 thou/uL (130-400); RBC Distribution Width 11.7 % (11.5-14.5); Red Blood Cell (RBC) Count 4.55 mill/uL (4.70-6.10); White Blood Cell (WBC) Count 21.8 thou/uL (4.8-10.8)
[2019-02-03 07:00] LABS: Anion Gap 13 mmol/L (10-20); BUN (Urea Nitrogen) 44 mg/dL (8.4-25.7); Calc. Creatinine Clearance 50 mL/min (70-130); Calcium 8.3 mg/dL (7.8-10.44); Carbon Dioxide 30 mmol/L (23-31); Chloride 101 mmol/L (98-107); Estimated GFR-MDRD 70; Glucose 157 mg/dL (83-110); Potassium 3.2 mmol/L (3.5-5.1); Sodium 141 mmol/L (136-145)
[2019-02-03 07:23] LABS: Band 5 % (5-11); Lymphocytes 4 % (21-51); MDiff Complete? YES; Monocytes 2 % (0-10); Neutrophil 89 % (42-75); RBC Morphology Normal
[2019-02-03] MEDS ORDERED: Verapamil 5 MG/2 ML VIAL ONE (08:57)
[2019-02-03] MEDS ORDERED: Heparin 10,000 UNITS/1 ML VIAL ONE (08:57)
[2019-02-03] MEDS ORDERED: Nitroglycerin 100MG/250ML BOT 250 ML ONE (08:57)
--- NOTE | 2019-02-03 09:19 | RAD ---
CHEST 1 VIEW: Date: 02/03/19 HISTORY: Ventilated patient. COMPARISON: Radiograph 2 days prior. FINDINGS: Lungs are hypoaerated. There is abnormally increased interstitial markings throughout the lungs sugge sting edema. Small effusions. Heart size is enlarged. IMPRESSION: New pulmonary edema. POS: CET
[2019-02-03] MEDS ORDERED: Sodium Chloride 0.9% 200 ML IV PRN (09:31)
[2019-02-03] MEDS ORDERED: Nitroglycerin 0.4 MG TAB (25 Tab Bottle) SL PRN (09:31)
[2019-02-03] MEDS ORDERED: Acetaminophen/Codeine 30-300mg Tablet PO PRN ×2 (09:31)
[2019-02-03] MEDS ORDERED: Potassium Chloride 20 MEQ TAB PO SCH (10:45)
--- NOTE | 2019-02-03 10:46 | PDOC.PN ---
- Subjective Encounter Start Date: 02/03/19 Encounter Start Time: 12:30 Subjective: Patient reports continued SOB, requiring high flow oxygen. Had cath -: this AM and needs CABG though respiratory status may prevent. -: No active chest pain currently. - Objective Resuscitation Status - Order Detail: 01/31/19 15:07 Resuscitation Status Routine Resuscitation Status: FULL: Full Resuscitation Discussed with: patient MAR Reviewed: Yes Vital Signs & Weight: Vital Signs (12 hours) Temp Pulse Resp Pulse Ox 02/03/19 07:29 92 L 02/03/19 07:10 97.3 F L 02/03/19 06:31 90 L 02/03/19 06:26 93 26 H 90 L 02/03/19 03:39 97.0 F L 02/03/19 03:07 93 L 02/03/19 00:18 98 02/03/19 00:00 97.6 F 02/02/19 23:25 93 21 H 94 L Weight Weight 140 lb 2 oz Most Recent Monitor Data Heart Rate from ECG 98 NIBP 105/69 NIBP BP-Mean 81 Respiration from ECG 23 SpO2 90 I&O: 02/02/19 02/03/19 02/04/19 06:59 06:59 06:59 Intake Total 1258 Output Total 2625 Balance -1367 Result Diagrams: 02/03/19 05:56 02/03/19 05:56 Additional Labs: Accuchecks 02/03/19 05:41 POC Glucose 164 H Phys Exam - Physical Examination Constitutional: NAD HEENT: moist MMs Respiratory: no wheezing, no rales, no rhonchi mild increased WOB on high flow O2 Cardiovascular: RRR Gastrointestinal: soft, positive bowel sounds Neurological: non-focal Psychiatric: normal affect, A&O x 3 Dx/Plan (1) Acute on chronic respiratory failure with hypoxia Code(s): J96.21 - ACUTE AND CHRONIC RESPIRATORY FAILURE WITH HYPOXIA Status: Acute Comment: Improving, secondary to pneumonia and CHF (2) Pneumonia Code(s): J18.9 - PNEUMONIA, UNSPECIFIED ORGANISM Status: Acute Comment: Improving, continuing antibiotics (3) Acute systolic CHF (congestive heart failure), NYHA class 3 Code(s): I50.21 - ACUTE SYSTOLIC (CONGESTIVE) HEART FAILURE Status: Acute Comment: EF 30-35%, continue diuretics (4) NSTEMI (non-ST elevated myocardial infarction) Code(s): I21.4 - NON-ST ELEVATION (NSTEMI) MYOCARDIAL INFARCTION Status: Acute Comment: s/p cath 02/03/2019, needs CABG if possible (5) Coagulopathy Status: Acute Comment: INR 2.7 (6) Pulmonary fibrosis Code(s): J84.10 - PULMONARY FIBROSIS, UNSPECIFIED Status: Chronic (7) Hypokalemia Code(s): E87.6 - HYPOKALEMIA Status: Acute Comment: replacing - Plan cont current plan of care, continue antibiotics, out of bed/ambulate * . - Discharge Day Encounter end time: 12:45
--- NOTE | 2019-02-03 10:55 | PRG ---
DATE OF SERVICE: 02/03/2019 SUBJECTIVE: Had a cardiac cath done, severe multivessel disease. OBJECTIVE: VITAL SIGNS: Saturations are 92% on high-flow, temperature 97, and blood pressure 114/85. CHEST: Bilateral crackles. CARDIAC: Sinus tach. ABDOMEN: Soft without masses. LABORATORY DATA: White count 21,000, H and H 13 and 42, and platelet count is normal. Lytes are normal. IMPRESSION: Pulmonary fibrosis, severe reduction in diffusion capacity, recent myocardial infarction with severe multivessel disease, and superimposed pneumonia with leukocytosis. PLAN: Discussed with Cardiology. The patient has extensive disease. Prognosis is poor. Still got ongoing leukocytosis, but all cultures are so far negative. I will continue antibiotic, steroids, and neb treatments. Prognosis is grave. We will discuss with family. Job ID: [id number]
[2019-02-03] MEDS: Cefepime 2 GM in Sodium Chloride 0.9% 100 ML IVPB SCH ×2 (12:14→20:28)
--- NOTE | 2019-02-03 15:01 | PQF ---
MAINOR KAMINSKI, KELLEY PORTER MD [id number] [facility]- B01 [id number] CLINICAL DOCUMENTATION IMPROVEMENT CLARIFICATION FORM: ICD-10 Updated PLEASE DO AN ADDENDUM TO THE PROGRESS NOTE WITH ANY DOCUMENTATION UPDATES OR ADDITIONS AND CARRY THROUGH TO DC SUMMARY. THANK YOU. DATE: ATTN: DR. KELLEY SANCHEZ Please exercise your independent, professional judgment in responding to the clarification form. Clinical indicators are provided on the bottom of this form for your review. Please check appropriate box(s): [ ] Empirically treating Gram Negative Pneumonia [ ] Pneumonia secondary to (specify organism / underlying disease) [ X ] Pneumonia of unknown etiology [ ] Other diagnosis [ ] Unable to determine In addition, please specify: Present on Admission (POA): [ X ] Yes [ ] No [ ] Unable to determine For continuity of documentation, please document condition throughout progress notes and discharge summary. Thank You. CLINICAL INDICATORS - SIGNS / SYMPTOMS / LABS H&P 01/31 (CLIFF): 2) PNEUMONIA. HE HAS BEEN STARTED ON CEFEPIME, WHICH I WILL CONTINUE PULMONOLOGY H&P (EVANS) 01/31: IMPRESSION: EXTENSIVE PULMONARY FIBROSIS W/ SUPERIMPOSED L-SIDED PNEUMONIA ATTENDING PN 02/01 - (CLIFF; LAURA): PNEUMONIA, UNSPECIFIED ORGANISM, ACUTE RISKS: SEVERE PULMONARY FIBROSIS LACTIC ACIDOSIS TREATMENT: IV ANTIBIOTIC (CEFEPIME 01/31 - PRESENT) PULMONOLOGY CONSULT SUPPLEMENTAL OXYGEN THANK YOU! Kristyn (This form is maintained as a part of the permanent medical record) 2014 [employer]. All Rights Reserved Kristyn Oconnell RN, BSN [email or web address] Office: [phone] [facility]
--- NOTE | 2019-02-03 15:06 | PQF ---
MAINOR KAMINSKI RYAN ANDREW MD [id number] [facility]- B01 [id number] CLINICAL DOCUMENTATION IMPROVEMENT CLARIFICATION FORM: ICD-10 Updated PLEASE DO AN ADDENDUM TO THE PROGRESS NOTE WITH ANY DOCUMENTATION UPDATES OR ADDITIONS AND CARRY THROUGH TO DC SUMMARY. THANK YOU. DATE: ATTN: DR. KELLEY SANCHEZ Please exercise your independent, professional judgment in responding to the clarification form. Clinical indicators are provided on the bottom of this form for your review. Please check appropriate box(s) to clarify if the following diagnosis has been ruled in or ruled out: SEPSIS [ X ] Ruled in diagnosis [ X ] Continue to treat [ ] Resolved [ ] Ruled out diagnosis [ ] Other diagnosis [ ] Unable to determine In addition, please specify: Present on Admission (POA): [ X ] Yes [ ] No [ ] Unable to determine For continuity of documentation, please document condition throughout progress notes and discharge summary. Thank You. CLINICAL INDICATORS - SIGNS / SYMPTOMS / LABS ER PRESENTATION 01/31: SOB O2 SAT 4L: 78%>NRB 94-98%, RR: 25-36 HR: 106 -129 SEPSIS ALERT ER PHYSICIAN FINAL DIAGNOSES: SEPSIS W/ LLL PNEUMONIA W/ACUTE HYPOXIA, NSTEMI WBC: 14.1, 14.2, 23.4, 21.8 (01/31-) LACTIC ACID: 4.0 (01/31) NO FURTHER DOCUMENTATION OF SEPSIS TO DATE RISKS: L-SIDED PNEUMONIA ACUTE HYPOXIC RESPIRATORY FAILURE TREATMENT: IV ANTIBIOTIC (CEFEPIME 01/31 - PRESENT) SUPPLEMENTAL OXYGEN THANK YOU! Kristyn (This form is maintained as a part of the permanent medical record) 2014 [employer]. All Rights Reserved Kristyn Oconnell RN, BSN [email or web address] Office: [phone] [facility]
[2019-02-03] MEDS ORDERED: Iopamidol 370 76% 100 ML VIAL ONE (16:03)
[2019-02-03] MEDS ORDERED: Warfarin Sodium 2 MG TAB PO SCH (17:00)
--- NOTE | 2019-02-03 17:22 | CON ---
DATE OF CONSULTATION: 02/03/2019 OTHER CONSULTING PHYSICIAN: Champ Aceves MD PRIMARY CARE PHYSICIAN: Benedict Dee MD CHIEF COMPLAINT: Confusion. HISTORY OF PRESENT ILLNESS: The patient is an 83-year-old man with a 3 or 4-year history of pulmonary fibrosis. In his usual state of health, he is able to be reasonably active, walking regularly and in fact until this past fall, regularly taking elaborate vacations, swimming, hiking, and the like. He until very recently regularly walks 3 blocks to take care of family members cat while she was out of town. He has oxygen at home, but seldom has to use it. 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 It was not; however, until he and 1 of his daughters almost simultaneously developed a cold-like illness about a month ago that he began getting noticeably short of breath with normal day-to-day activities. He recently got up in the middle of the night and was rather confused. He essentially got lost in his own home and help was summoned and he was found to have an O2 saturation in the 60s and he was brought to the emergency room. With supplemental oxygen, it was possible to get his O2 saturations up around 90 fairly easily and his confusion gradually cleared. Initial labs showed a modest elevation of his troponin, which migue a little bit and then fell a little bit. He had a modest elevation in his BNP. He did not remember any chest discomfort during his period of confusion and as his confusion cleared, he did not remember having any either. Over the last few days, his weight is down 2 or 3 pounds. His net measured I's and O's are -4 L or so, and his chest x-ray has improved somewhat. During that time; however, his O2 saturations have remained mostly in the 90% to 93% range, occasionally falling into the 80s. An echocardiogram demonstrated mildly decreased LV function with a distal anterior and anterior apical wall motion abnormality and elevated PA pressures. Cardiac catheterization today demonstrates 3-vessel coronary artery disease with an LVEDP of around 3. PAST MEDICAL HISTORY: Significant for history of a DVT. 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 SOCIAL HISTORY: He does not smoke. FAMILY HISTORY: Negative for premature coronary artery disease. HOME MEDICATIONS: 1. Prilosec. 2. Coumadin. 3. Daily oral Zaroxolyn and twice daily IV Lasix have been added to his regimen along with Solu-Medrol and cefepime. 4. He is also on scheduled Dulera inhalers and DuoNebs. ALLERGIES: HE DENIES ANY MEDICAL ALLERGIES. REVIEW OF SYSTEMS: Negative for any current eye, speech, facial, or extremity symptoms consistent with TIAs and negative for any claudication symptoms. PHYSICAL EXAMINATION: VITAL SIGNS: He is 5 feet 6 inches and weighs 140 pounds. He looks a bit short of breath. His heart rate is mostly in the 90 to 105 range, blood pressures in the 95 to 125/60 to 75 range, and respirations have been in the mid 20s to 30 range. NECK: He has no JVD. He was very difficult to assess for carotid bruits because of difficulty holding his breath. LUNGS: I had a hard time appreciating breath sounds. HEART: He has a regular rate and rhythm. ABDOMEN: Soft and nontender. EXTREMITIES: He has palpable radial, femoral, and popliteal pulses bilaterally. I was able to appreciate the right posterior tibial, but not the left. I was not able to appreciate either dorsalis pedis pulse. He has no clubbing, cyanosis, or edema. LABORATORY DATA: His white count now is 21.8, but was 14.1 on admission. Hemoglobin is 13.3, hematocrit 42.7, and platelets 276,000. His electrolytes were normal. Glucose on admission was 147 and on labs this morning was 157. His BUN and creatinine on admission were 18 and 0.91 respectively and this morning they are now 44 and 1.02. He had a mild elevation of his AST at 101, otherwise his LFTs were normal. Albumin 7.2. His BNP on admission was 344.1 and his troponin was 13.458, about 4 hours later was 15.767 and then about 2 hours after that was 14.470. His chest x-ray shows a rather dramatic picture of what appears to represent pulmonary fibrosis. There may be some superimposed pulmonary edema. In going back to 2014, there is some prominent pulmonary markings, but it is an underpenetrated film that is a little bit difficult to assess, but then going from onward from there, chest x-ray showed gradual worsening of a fibrotic type pattern. He has no obvious aortic knob calcification or cardiomegaly. His echocardiogram shows an EF of 30% to 35% with akinesis of the distal anterior wall and the apex anteriorly. There is [id number] mitral regurgitation and moderate aortic regurgitation. PA systolic pressures are estimated at 69 mmHg. Cardiac catheterization is a little bit difficult for me to tell about whether it is right or left dominant. On right-sided injections, there is a high-grade stenosis fairly proximally and then what appeared to be acute marginals, although certain views look like it could simply be a very high bifurcation of the right coronary in the PDA and posterolateral branches with a fairly abrupt cut off 1 of them. He has serial high-grade stenosis in his LAD, 1 at about the level of the first septal riprap worker and 1 just a little bit distal to that. He has serial more modest lesions in circumflex beyond an OM1, leading to a large OM2. LV gram was deferred, but pressures were measured. LV pressure was 92/2 with an EDP of 3 and 103/-5 with an EDP of -2. Aortic pressure on pullback from the 1 of 3 systolic pressure was 110/63 with a mean of 84. IMPRESSION AND RECOMMENDATIONS: Three-vessel coronary artery disease with mildly decreased left ventricular function in a patient with pulmonary fibrosis, who is in a period of decompensation is not entirely clear to me how much of this represents progression of his underlying disease. How much of it represents superimposition of a viral illness and how much of it represents superimposition of a recent myocardial infarction, whether the myocardial infarction can be attributed directly to his coronary artery disease was precipitated by a period of hypoxia is another question. At this point, all that is a bit moot as his pulmonary status really precludes him from surgical intervention and I am skeptical that his coronary status is sufficiently critical to warrant subjecting him to relatively high risk percutaneous intervention. His pulmonary status may be somewhat recoverable, although last fall, he noticed some shortness of breath when he went for a test swim in a pool prior to trying to go snorkeling out in ocean when he was on a [place] vacation. He was able to keep up with normal day-to-day activities without any difficulty. His daughter showed me a picture of him and his on their anniversary about 2 months ago and a difference in his appearance now is rather dramatic, it maybe wishful thinking, but it may be possible that if he could recover back to his baseline of a few months ago that 1 might consider surgical revascularization, but not at this time. Job ID: [id number]
[2019-02-03] MEDS: Melatonin 3 MG TAB PO PRN (21:25)
[2019-02-04] MEDS ORDERED: methylPREDNISolone Sod Succ/PF 125 MG/2 ML VIAL ONE (00:13)
[2019-02-04] MEDS: methylPREDNISolone Sod Succ 40 MG VIAL IVP SCH (00:49)
[2019-02-04] MEDS: Furosemide 40 MG/4 ML VIAL SLOW IVP SCH ×2 (05:37→16:24)
[2019-02-04] MEDS ORDERED: methylPREDNISolone Sod Succ/PF 125 MG/2 ML VIAL IVP SCH (06:00)
[2019-02-04 06:19] LABS: Anion Gap 15 mmol/L (10-20); BUN (Urea Nitrogen) 63 mg/dL (8.4-25.7); Calc. Creatinine Clearance 32 mL/min (70-130); Calcium 8.2 mg/dL (7.8-10.44); Carbon Dioxide 34 mmol/L (23-31); Chloride 93 mmol/L (98-107); Estimated GFR-MDRD 43; Glucose 222 mg/dL (83-110); Potassium 3.4 mmol/L (3.5-5.1); Sodium 139 mmol/L (136-145)
--- NOTE | 2019-02-04 08:10 | PDOC.PN ---
- Subjective Encounter Start Date: 02/04/19 Encounter Start Time: 12:30 Subjective: Patient unchanged overnight. Still requiring high flow oxygen, drops quickl -: with any movement of the nasal canula. - Objective Resuscitation Status - Order Detail: 01/31/19 15:07 Resuscitation Status Routine Resuscitation Status: FULL: Full Resuscitation Discussed with: patient HEENA Reviewed: Yes Vital Signs & Weight: Vital Signs (12 hours) Temp Pulse Resp Pulse Ox 02/04/19 07:10 96.5 F L 02/04/19 03:46 97.0 F L 02/04/19 02:50 96 02/04/19 00:16 91 23 H 96 02/03/19 23:39 97.0 F L Weight Weight 137 lb 5 oz Most Recent Monitor Data Heart Rate from ECG 89 NIBP 114/62 NIBP BP-Mean 79 Respiration from ECG 27 SpO2 88 I&O: 02/03/19 02/04/19 02/05/19 06:59 06:59 06:59 Intake Total 1258 1797 Output Total 2625 3000 Balance -1367 -1203 Result Diagrams: 02/03/19 05:56 02/04/19 05:40 Phys Exam - Physical Examination Constitutional: NAD HEENT: moist MMs Respiratory: no wheezing, no rales, no rhonchi decent air movement throughout, mild increased WOB Cardiovascular: RRR Gastrointestinal: soft, positive bowel sounds Musculoskeletal: no edema Neurological: non-focal, moves all 4 limbs Psychiatric: normal affect, A&O x 3 Dx/Plan (1) Acute on chronic respiratory failure with hypoxia Code(s): J96.21 - ACUTE AND CHRONIC RESPIRATORY FAILURE WITH HYPOXIA Status: Acute Comment: Improving, secondary to pneumonia and CHF (2) Sepsis Code(s): A41.9 - SEPSIS, UNSPECIFIED ORGANISM Status: Acute Comment: Persistent leukocytosis, hypoxia, and tachypnea. (3) Pneumonia Code(s): J18.9 - PNEUMONIA, UNSPECIFIED ORGANISM Status: Acute Comment: Improving, continuing antibiotics (4) Acute systolic CHF (congestive heart failure), NYHA class 3 Code(s): I50.21 - ACUTE SYSTOLIC (CONGESTIVE) HEART FAILURE Status: Acute Comment: EF 30-35%, continue diuretics (5) NSTEMI (non-ST elevated myocardial infarction) Code(s): I21.4 - NON-ST ELEVATION (NSTEMI) MYOCARDIAL INFARCTION Status: Acute Comment: s/p cath 02/03/2019, needs CABG if possible (6) Coagulopathy Status: Acute Comment: INR 2.7 (7) Pulmonary fibrosis Code(s): J84.10 - PULMONARY FIBROSIS, UNSPECIFIED Status: Chronic (8) Hypokalemia Code(s): E87.6 - HYPOKALEMIA Status: Acute Comment: replacing - Plan cont current plan of care, continue antibiotics, respiratory therapy, out of bed /ambulate * . - Discharge Day Encounter end time: 12:40 Pulmonology Consult: Meds - Medications MAR Reviewed: Yes Medications: Current Medications Acetaminophen (Tylenol) 650 mg PO Q4H PRN PRN Reason: Headache/Fever/Mild Pain (1-3) Last Admin: 01/31/19 20:44 Dose: 650 mg Acetaminophen (Tylenol) 650 mg MN Q4H PRN PRN Reason: Headache/Fever/Mild Pain (1-3) Acetaminophen/Codeine Phosphate (Tylenol #3) 1 tab PO Q4H PRN PRN Reason: Mild Pain (1-3) Acetaminophen/Codeine Phosphate (Tylenol #3) 2 tab PO Q4H PRN PRN Reason: Moderate Pain (4-6) Acidophilus (Floranex) 1 tab PO DAILY [facility] Last Admin: 02/03/19 05:47 Dose: 1 tab Albuterol/Ipratropium (Duoneb) 3 ml NEB [id number] [facility] Last Admin: 02/04/19 00:16 Dose: 3 ml Amitriptyline HCl (Elavil) 25 mg PO HSPRN PRN PRN Reason: Insomnia Aspirin (Ecotrin) 325 mg PO DAILY [facility] Last Admin: 02/03/19 05:46 Dose: 325 mg Benzonatate (Tessalon) 100 mg PO TID [facility] Last Admin: 02/03/19 20:28 Dose: 100 mg Bisacodyl (Dulcolax) 10 mg MN DAILYPRN PRN PRN Reason: Constipation Cholecalciferol (Vitamin D3) 1,000 units PO DAILY [facility] Last Admin: 02/03/19 06:13 Dose: 1,000 units Furosemide (Lasix) 60 mg SLOW IVP 0600,1400 [facility] Last Admin: 02/04/19 05:37 Dose: 60 mg Guaifenesin/Dextromethorphan (Robitussin Dm) 5 ml PO TID PRN PRN Reason: Cough Cefepime HCl 2 gm/ Sodium (Chloride) 100 mls @ 200 mls/hr IVPB Q12HR [facility] Last Admin: 02/03/19 20:28 Dose: 100 mls Melatonin (Melatonin) 3 mg PO HS PRN PRN Reason: Insomnia Last Admin: 02/03/19 21:25 Dose: 3 mg Methylprednisolone Sodium Succinate (Solu-Medrol) 40 mg IVP Q6HR [facility] Last Admin: 02/04/19 05:35 Dose: 40 mg Metolazone (Zaroxolyn) 2.5 mg PO 0830 [facility] Last Admin: 02/03/19 05:47 Dose: 2.5 mg Miscellaneous Medication (Pharmacy To Dose) 1 each PO PRN PRN PRN Reason: Pharmacy to dose Mometasone Furoate/Formoterol Fumar (Dulera 200 Mcg/5 Mcg Inhaler) 2 puff INH BID-RT [facility] Last Admin: 02/03/19 19:54 Dose: 2 puff Morphine Sulfate (Morphine) 2 mg SLOW IVP Q5MIN PRN PRN Reason: Chest Pain Multivitamins (Theragran) 1 tab PO DAILY [facility] Last Admin: 02/03/19 05:46 Dose: 1 tab Multivitamins/Zinc (Stress 600 With Zinc) 1 tab PO DAILY [facility] Last Admin: 02/03/19 05:46 Dose: 1 tab Nitroglycerin (Nitrostat) 0.4 mg SL Q5MIN PRN PRN Reason: Chest Pain Nitroglycerin (Nitrostat) 0.4 mg SL Q5MIN PRN PRN Reason: Chest Pain Ondansetron HCl (Zofran) 4 mg IVP Q6H PRN PRN Reason: Nausea/Vomiting Pantoprazole Sodium (Protonix) 40 mg PO DAILY [facility] Last Admin: 02/03/19 05:47 Dose: 40 mg Warfarin Sodium (Coumadin) 2 mg PO 1700 [facility] - Allergies Allergies/Adverse Reactions: Allergies Allergy/AdvReac Type Severity Reaction Status Date / Time No Known Allergies Allergy Verified 01/31/19 12:55
[2019-02-04] MEDS: Mometasone/Formoterol 120 PUFF INHALER INH SCH ×2 (08:20→18:49)
--- NOTE | 2019-02-04 09:02 | RAD ---
CHEST ONE VIEW: History: Ventilated patient. Comparison: Prior day. FINDINGS: The increased interstitial markings are similar. No pneumothorax. No large effusion. Heart size is en larged. No acute osseous abnormality. IMPRESSION: Similar examination of the chest. No interval improvement. POS: [facility]
[2019-02-04] MEDS: Benzonatate 100 MG CAP PO SCH ×3 (09:57→20:40)
[2019-02-04] MEDS: Lactinex Tablet PO SCH (09:57)
[2019-02-04] MEDS: Multivit, Therapeutic 1 TAB PO SCH (09:57)
[2019-02-04] MEDS: Stress 600 With Zinc 1 TAB PO SCH (09:57)
[2019-02-04] MEDS: Aspirin 325 mg Enteric Coated Tablet PO SCH (09:57)
--- NOTE | 2019-02-04 10:23 | PRG ---
DATE OF SERVICE: SUBJECTIVE: Malcolm Goncalves is an 83-year-old gentleman, status post HI and CHF. This morning, he is awake, alert, and responsive. He has had surprisingly better 99% high-flow at 60. OBJECTIVE: VITAL SIGNS: Pulse 86, respirations 18, and blood pressure 120/80. CHEST: Bilateral crackles. CARDIAC: Normal S1 and S2. No gallop. ABDOMEN: No masses. LABORATORY DATA: Creatinine 1.5, increased. IMPRESSION: 1. Multiorgan failure. 2. Pulmonary fibrosis. 3. Congestive heart failure. 4. Myocardial infarction. 5. Status post catheterization. 6. Azotemia. PLAN: Renal function somewhat worse. I would switch over to oral medication today. Palliative Care will see the patient. Long-term prognosis is guarded. Job ID: [id number]
[2019-02-04] MEDS: Metolazone 2.5 MG TAB PO SCH (10:59)
[2019-02-04] MEDS: Cefepime 2 GM in Sodium Chloride 0.9% 100 ML IVPB SCH (10:59)
[2019-02-04 15:49] LABS: INR-International Normal Ratio 3.3; Prothrombin Time 33.4 SEC (12.0-14.7)
--- NOTE | 2019-02-04 17:36 | PDOC.CTH ---
Cardiology Progress Note - Subjective The pt seen and examined. No overnight events. No cardiac complaints. Severe SCHNEIDER with mild exertion. - Objective Vital Signs Temp Pulse Pulse Pulse Resp BP BP 02/04/19 15:20 97.1 F L 02/04/19 13:14 90 20 02/04/19 11:13 02/04/19 11:06 97.1 F L 02/04/19 09:09 93 86 88/66 L 90/56 L 02/04/19 08:24 02/04/19 08:14 86 23 H 02/04/19 07:45 02/04/19 07:10 96.5 F L Pulse Ox Pulse Ox Pulse Ox 02/04/19 15:20 02/04/19 13:14 88 L 02/04/19 11:13 94 L 02/04/19 11:06 02/04/19 09:09 98 97 02/04/19 08:24 99 02/04/19 08:14 99 02/04/19 07:45 100 02/04/19 07:10 Weight 137 lb 5 oz 02/03/19 02/04/19 02/05/19 06:59 06:59 06:59 Intake Total 1258 1797 Output Total 2625 3000 Balance -1367 -1203 - Physical Examination General/Neuro: alert & oriented x3 Neck: no JVD present Lungs: other: (very diminished at bases) Heart: RRR Abdomen: soft Extremities: other: (No edema) - Telemetry Telemetry Rhythm: SR, PVCs - Labs Result Diagrams: 02/06/19 06:04 02/06/19 06:04 Troponin/CKMB CK-MB (CK-2) 60.6 ng/mL (0-6.6) H* 01/31/19 18:18 Troponin I 14.470 ng/mL (< 0.028) H* 01/31/19 15:09 - Assessment/Plan 1. S/p LHC on 02/02/2019 with 3V CAD - asymptomatic; holding CABG for a few months till his condition is more stable 2. Acute Resp. failure 2/2 Pulmonary fibrosis and PNA - continues to require high flow oxygen 3. Acute on Chronic Systolic HF iwth EF 30-35% - stable with Lasix; on Lisinopril; but not BBolcker 2/2 worsening of lung function 4. Ischemic CMY - 5. Coagulopaty - On Coumadin MAR reviewed Pt. seen and eval. by me I agree with the A/P by the [employer]. Ill pt. high risk for CABG due to pulm. disease. Review of Systems - Review of Systems Constitutional: reports: no symptoms reported EENTM: reports: no symptoms reported Respiratory: reports: no symptoms reported Cardiac (ROS): reports: no symptoms reported ABD/GI: reports: no symptoms reported : reports: no symptoms reported
[2019-02-04] MEDS: predniSONE 20 MG TAB PO SCH (20:40)
[2019-02-04] MEDS: Cefdinir 300 MG CAP PO SCH (20:40)
[2019-02-05 05:20] LABS: INR-International Normal Ratio 3.3; Prothrombin Time 33.6 SEC (12.0-14.7)
[2019-02-05] MEDS: Mometasone/Formoterol 120 PUFF INHALER INH SCH ×2 (06:25→18:52)
[2019-02-05] MEDS: Furosemide 40 MG/4 ML VIAL SLOW IVP SCH ×2 (06:38→14:34)
--- NOTE | 2019-02-05 09:33 | PRG ---
DATE OF SERVICE: 02/05/2019 SUBJECTIVE: An 83-year-old gentleman. This morning, very hypoxic high-flow sats are 95% blood pressure 98/68. CHEST: Extensive crackles. CARDIAC: Normal S1 and S2. No gallops. ABDOMEN: No masses. IMPRESSION: 1. Respiratory failure. 2. Congestive heart failure. 3. Deep venous thrombosis. 4. Myocardial infarction. PLAN: High dose Lasix, neb treatments, steroids. Unfortunately, he is not a surgical candidate. His prognosis is grave. Family to decide about code status. Job ID: [id number]
[2019-02-05] MEDS: Benzonatate 100 MG CAP PO SCH ×3 (09:37→20:46)
[2019-02-05] MEDS: Multivit, Therapeutic 1 TAB PO SCH (09:37)
[2019-02-05] MEDS: Cefdinir 300 MG CAP PO SCH ×2 (09:37→20:46)
[2019-02-05] MEDS: Aspirin 325 mg Enteric Coated Tablet PO SCH (09:37)
[2019-02-05] MEDS: predniSONE 20 MG TAB PO SCH ×2 (09:37→20:46)
[2019-02-05] MEDS: Stress 600 With Zinc 1 TAB PO SCH (09:37)
[2019-02-05] MEDS: Lactinex Tablet PO SCH (09:42)
[2019-02-05] MEDS ORDERED: Potassium Chloride 20 MEQ TAB PO SCH (09:45)
--- NOTE | 2019-02-05 09:45 | PDOC.PN ---
- Subjective Encounter Start Date: 02/05/19 Encounter Start Time: 12:00 Subjective: Patient unchanged. Still very SOB with exertion and requiring -: high dose O2. Currently sats on the high dose O2 are 98%. - Objective Resuscitation Status - Order Detail: 01/31/19 15:07 Resuscitation Status Routine Resuscitation Status: FULL: Full Resuscitation Discussed with: ana maria NAIK Reviewed: Yes Vital Signs & Weight: Vital Signs (12 hours) Temp Pulse Resp Pulse Ox 02/05/19 08:01 95 02/05/19 06:27 95 02/05/19 06:23 80 20 95 02/05/19 04:00 97.3 F L 02/05/19 02:32 94 L 02/05/19 00:52 83 23 H 94 L 02/05/19 00:00 97.4 F L Weight Weight 137 lb 5 oz Most Recent Monitor Data Heart Rate from ECG 89 NIBP 95/68 NIBP BP-Mean 77 Respiration from ECG 27 SpO2 91 I&O: 02/04/19 02/05/19 02/06/19 06:59 06:59 06:59 Intake Total 1797 900 Output Total 3000 1050 Balance -1203 -150 Result Diagrams: 02/03/19 05:56 02/04/19 05:40 Phys Exam - Physical Examination Constitutional: NAD HEENT: moist MMs Respiratory: no wheezing, no rales, no rhonchi Cardiovascular: RRR Gastrointestinal: soft, positive bowel sounds Neurological: non-focal Psychiatric: normal affect, A&O x 3 Dx/Plan (1) Acute on chronic respiratory failure with hypoxia Code(s): J96.21 - ACUTE AND CHRONIC RESPIRATORY FAILURE WITH HYPOXIA Status: Acute Comment: still requiring high flow O2 and desats easily, secondary to pneumonia and CHF (2) Sepsis Code(s): A41.9 - SEPSIS, UNSPECIFIED ORGANISM Status: Acute Comment: Persistent leukocytosis, hypoxia, and tachypnea. (3) Pneumonia Code(s): J18.9 - PNEUMONIA, UNSPECIFIED ORGANISM Status: Acute Comment: continuing antibiotics (4) Acute systolic CHF (congestive heart failure), NYHA class 3 Code(s): I50.21 - ACUTE SYSTOLIC (CONGESTIVE) HEART FAILURE Status: Acute Comment: EF 30-35%, continue diuretics (5) NSTEMI (non-ST elevated myocardial infarction) Code(s): I21.4 - NON-ST ELEVATION (NSTEMI) MYOCARDIAL INFARCTION Status: Acute Comment: s/p cath 02/03/2019, needs CABG if possible (6) Coagulopathy Status: Acute Comment: INR 2.7 (7) Pulmonary fibrosis Code(s): J84.10 - PULMONARY FIBROSIS, UNSPECIFIED Status: Chronic (8) Hypokalemia Code(s): E87.6 - HYPOKALEMIA Status: Acute Comment: replacing (9) Acute renal failure Status: Acute Comment: likely due to diuresis, uncertain how much more fluid we will be able to get off - Plan cont current plan of care, continue antibiotics, respiratory therapy, DVT proph w/SCDs prognosis poor * . - Discharge Day Encounter end time: 12:15
[2019-02-05] MEDS: Atorvastatin Calcium 10 MG TAB PO SCH (20:46)
[2019-02-05] MEDS: Melatonin 3 MG TAB PO PRN (21:22)
[2019-02-06 06:20] LABS: #Lymphocytes 0.6 thou/uL (1.20-3.40); #Monocytes 0.5 thou/uL (0.11-0.59); #Neutrophils 16.5 thou/uL (1.40-6.50); %Basophils 0.1 % (0.0-1.0); %Eosinophils 0.1 % (0.0-10.0); %Lymphocytes 3.3 % (21.0-51.0); %Neutrophils 93.5 % (42.0-75.0); Hemoglobin 14.2 g/dL (14.0-18.0); Mean Corpuscular HGB CONC 33.4 g/dL (32.0-36.0); Mean Corpuscular Volume 92.7 fL (78.0-98.0); Platelet Count 227 thou/uL (130-400); RBC Distribution Width 11.6 % (11.5-14.5); Red Blood Cell (RBC) Count 4.59 mill/uL (4.70-6.10); White Blood Cell (WBC) Count 17.7 thou/uL (4.8-10.8)
[2019-02-06] MEDS: Mometasone/Formoterol 120 PUFF INHALER INH SCH ×2 (06:23→18:48)
[2019-02-06 06:27] LABS: INR-International Normal Ratio 2.8; Prothrombin Time 29.6 SEC (12.0-14.7)
[2019-02-06 06:38] LABS: Anion Gap 16 mmol/L (10-20); BUN (Urea Nitrogen) 104 mg/dL (8.4-25.7); Calc. Creatinine Clearance 24 mL/min (70-130); Calcium 8.7 mg/dL (7.8-10.44); Carbon Dioxide 35 mmol/L (23-31); Chloride 91 mmol/L (98-107); Estimated GFR-MDRD 32; Glucose 170 mg/dL (83-110); Potassium 3.8 mmol/L (3.5-5.1); Sodium 138 mmol/L (136-145)
[2019-02-06] MEDS: Multivit, Therapeutic 1 TAB PO SCH (08:51)
[2019-02-06] MEDS: Benzonatate 100 MG CAP PO SCH ×3 (08:51→20:18)
[2019-02-06] MEDS: Cefdinir 300 MG CAP PO SCH ×2 (08:52→20:18)
[2019-02-06] MEDS: Aspirin 325 mg Enteric Coated Tablet PO SCH (08:52)
[2019-02-06] MEDS: Lactinex Tablet PO SCH (08:52)
[2019-02-06] MEDS: predniSONE 20 MG TAB PO SCH ×2 (08:52→20:18)
[2019-02-06] MEDS: Stress 600 With Zinc 1 TAB PO SCH (08:54)
--- NOTE | 2019-02-06 09:45 | PDOC.PN ---
- Subjective Encounter Start Date: 02/06/19 Encounter Start Time: 11:45 Subjective: Patient with some constipation. One small bowel movement 4 days ago. No -: good ones since in the hospital. No changes to respiratory status overnight - Objective Resuscitation Status - Order Detail: 01/31/19 15:07 Resuscitation Status Routine Resuscitation Status: FULL: Full Resuscitation Discussed with: ana maria NAIK Reviewed: Yes Vital Signs & Weight: Vital Signs (12 hours) Temp Pulse Resp Pulse Ox 02/06/19 07:13 97.0 F L 02/06/19 06:21 94 L 02/06/19 06:20 80 24 H 94 L 02/06/19 04:00 97.3 F L 02/05/19 23:47 97.4 F L Weight Weight 134 lb 1.6 oz Most Recent Monitor Data Heart Rate from ECG 79 NIBP 104/67 NIBP BP-Mean 79 Respiration from ECG 23 SpO2 93 I&O: 02/05/19 02/06/19 02/07/19 06:59 06:59 06:59 Intake Total 900 970 Output Total 1050 2000 Balance -150 -1030 Result Diagrams: 02/06/19 06:04 02/06/19 06:04 Phys Exam - Physical Examination Constitutional: NAD HEENT: moist MMs Respiratory: no wheezing, no rales, no rhonchi on high flow O2, sating 95% currently Cardiovascular: RRR Gastrointestinal: soft, non-tender, positive bowel sounds Neurological: non-focal Psychiatric: normal affect, A&O x 3 Dx/Plan (1) Acute on chronic respiratory failure with hypoxia Code(s): J96.21 - ACUTE AND CHRONIC RESPIRATORY FAILURE WITH HYPOXIA Status: Acute Comment: still requiring high flow O2 and desats easily, secondary to pneumonia and CHF (2) Sepsis Code(s): A41.9 - SEPSIS, UNSPECIFIED ORGANISM Status: Acute Comment: Persistent leukocytosis, hypoxia, and tachypnea. On antibiotics. (3) Pneumonia Code(s): J18.9 - PNEUMONIA, UNSPECIFIED ORGANISM Status: Acute Comment: continuing antibiotics (4) Acute systolic CHF (congestive heart failure), NYHA class 3 Code(s): I50.21 - ACUTE SYSTOLIC (CONGESTIVE) HEART FAILURE Status: Acute Comment: EF 30-35%, diuretics held due to elevating creatinine (5) NSTEMI (non-ST elevated myocardial infarction) Code(s): I21.4 - NON-ST ELEVATION (NSTEMI) MYOCARDIAL INFARCTION Status: Acute Comment: s/p cath 02/03/2019, needs CABG if possible (6) Coagulopathy Status: Acute Comment: INR 2.7 (7) Pulmonary fibrosis Code(s): J84.10 - PULMONARY FIBROSIS, UNSPECIFIED Status: Chronic (8) Hypokalemia Code(s): E87.6 - HYPOKALEMIA Status: Acute Comment: replacing (9) Acute renal failure Status: Acute Comment: likely due to diuresis, uncertain how much more fluid we will be able to get off (10) Constipation Code(s): K59.00 - CONSTIPATION, UNSPECIFIED Status: Acute Comment: add colace daily, prns - Plan cont current plan of care, continue antibiotics, PT/OT, respiratory therapy, DVT proph w/SCDs * . - Discharge Day Encounter end time: 11:55
--- NOTE | 2019-02-06 10:30 | PRG ---
DATE OF SERVICE: 02/06/2019 SUBJECTIVE: This morning, remains hypoxic. He is on high-flow, 45. OBJECTIVE: VITAL SIGNS: Sats are 95%, pulse 80, temperature 97, blood pressure 101/65. CHEST: He has strong bilateral crackles. CARDIAC: Normal S1 and S2. No gallops. ABDOMEN: No masses. LABORATORY DATA: Creatinine is 2, BUN is 104 markedly elevated. INR is 2.8. White count 17,000. IMPRESSION: Pulmonary fibrosis, congestive heart failure, worsening renal failure. PLAN: I am going to decrease his diuretics. Continue low-dose Coumadin. Supportive care PT. Family is still deciding about a code status. Job ID: [id number]
[2019-02-06] MEDS ORDERED: Bisacodyl 5 MG TAB PO SCH (12:00)
[2019-02-06] MEDS ORDERED: Sodium Chloride 0.45% 1,000 ML IV SCH (15:00)
[2019-02-06] MEDS: Warfarin Sodium 1 MG TAB PO SCH (17:46)
[2019-02-06] MEDS: Atorvastatin Calcium 10 MG TAB PO SCH (20:18)
[2019-02-06] MEDS: Docusate 100 MG CAP PO SCH (20:18)
[2019-02-06] MEDS: Melatonin 3 MG TAB PO PRN (20:18)
[2019-02-07 06:53] LABS: INR-International Normal Ratio 2.4; Prothrombin Time 26.1 SEC (12.0-14.7)
--- NOTE | 2019-02-07 08:15 | RAD ---
CHEST 1 VIEW PORTABLE: HISTORY: Congestive heart failure. COMPARISON: 02/04/2019. FINDINGS: Increased interstitial and reticulonodular parenchymal changes noted throughout both lungs which may well represent some underlying chronic component with the possibility of some acute interstitial jeff ge as well. Poor inspiratory effort. No confluent lobar pneumonia. IMPRESSION: Poor inspiratory effort with increased linear and interstitial markings certainly representing some u nderlying chronic component, although some degree of acute interstitial edema or atypical pneumonitis could certainly have a similar appearance. Continued short-term followup for clearing or stability. POS: [facility]
[2019-02-07] MEDS: Mometasone/Formoterol 120 PUFF INHALER INH SCH ×2 (08:22→18:27)
[2019-02-07] MEDS: Benzonatate 100 MG CAP PO SCH ×3 (09:13→21:40)
[2019-02-07] MEDS: Aspirin 325 mg Enteric Coated Tablet PO SCH (09:13)
[2019-02-07] MEDS: Lactinex Tablet PO SCH (09:13)
[2019-02-07] MEDS: Multivit, Therapeutic 1 TAB PO SCH (09:13)
[2019-02-07] MEDS: Cefdinir 300 MG CAP PO SCH ×2 (09:13→21:41)
[2019-02-07] MEDS: predniSONE 20 MG TAB PO SCH ×2 (09:13→21:41)
[2019-02-07] MEDS: Stress 600 With Zinc 1 TAB PO SCH (09:13)
[2019-02-07] MEDS: Docusate 100 MG CAP PO SCH ×2 (09:13→21:41)
[2019-02-07] MEDS: Polyethylene Glycol 3350 17 GM Packet PO SCH (09:14)
--- NOTE | 2019-02-07 09:57 | PRG ---
DATE OF SERVICE: 02/07/2019 SUBJECTIVE: This morning, he is better. X-ray looks much improved, but his sats are on high-flow, 45, and 98%. Pulse is 76, respirations 16, temperature 97, and blood pressure is 120/80. CHEST: Extensive bilateral crackles. CARDIAC: Normal S1 and S2. No gallops. ABDOMEN: No masses. IMPRESSION: 1. Congestive heart failure, myocardial infarction, status post catheterization, three-vessel disease. 2. Pulmonary fibrosis, superimposed pneumonia. PLAN: He is much improved once he is able to switch him over to regular Ventimask. Nasal O2 can be transitioned towards home. We will follow. Job ID: [id number]
--- NOTE | 2019-02-07 14:25 | PDOC.PN ---
- Subjective Encounter Start Date: 02/07/19 Encounter Start Time: 11:45 Subjective: on high flow oxygen, no chest pain -: is eating better per family at bedside - Objective Resuscitation Status - Order Detail: 01/31/19 15:07 Resuscitation Status Routine Resuscitation Status: FULL: Full Resuscitation Discussed with: patient HEENA Reviewed: Yes Vital Signs & Weight: Vital Signs (12 hours) Temp Pulse Resp Pulse Ox 02/07/19 14:02 96 23 H 91 L 02/07/19 11:10 89 L 02/07/19 10:36 97.2 F L 02/07/19 08:22 76 16 98 02/07/19 07:39 98 02/07/19 07:36 76 16 98 02/07/19 07:17 95 02/07/19 07:11 96.9 F L 02/07/19 04:00 97.0 F L 02/07/19 02:28 94 L Weight Weight 135 lb 3.2 oz Most Recent Monitor Data Heart Rate from ECG 91 NIBP 94/59 NIBP BP-Mean 70 Respiration from ECG 29 SpO2 91 I&O: 02/06/19 02/07/19 02/08/19 06:59 06:59 06:59 Intake Total 970 2040 Output Total 2000 1800 Balance -1030 240 Result Diagrams: 02/06/19 06:04 02/06/19 06:04 Phys Exam - Physical Examination HEENT: PERRLA, moist MMs Neck: no JVD, supple Respiratory: no wheezing, no rales Cardiovascular: RRR, no significant murmur Gastrointestinal: soft, non-tender, positive bowel sounds Musculoskeletal: no edema, pulses present Neurological: non-focal, moves all 4 limbs Psychiatric: normal affect, A&O x 3 Dx/Plan (1) Acute on chronic respiratory failure with hypoxia Code(s): J96.21 - ACUTE AND CHRONIC RESPIRATORY FAILURE WITH HYPOXIA Status: Acute Comment: still requiring high flow O2 and desats easily, secondary to pneumonia and CHF (2) Acute renal failure Status: Acute (3) Acute systolic CHF (congestive heart failure), NYHA class 3 Code(s): I50.21 - ACUTE SYSTOLIC (CONGESTIVE) HEART FAILURE Status: Acute Comment: EF 30-35%, diuretics held due to elevating creatinine (4) NSTEMI (non-ST elevated myocardial infarction) Code(s): I21.4 - NON-ST ELEVATION (NSTEMI) MYOCARDIAL INFARCTION Status: Acute Comment: s/p cath 02/03/2019, needs CABG if possible (5) Pneumonia Code(s): J18.9 - PNEUMONIA, UNSPECIFIED ORGANISM Status: Acute Comment: continuing antibiotics (6) Pulmonary fibrosis Code(s): J84.10 - PULMONARY FIBROSIS, UNSPECIFIED Status: Chronic - Plan is on asp, lipitor, imdur -: nebs, prednisone, omnicef -: d/w will see patient -: worsoning renal function -: is slowly weaning off high flow oxygen * . Review of Systems - Medications/Allergies Allergies/Adverse Reactions: Allergies Allergy/AdvReac Type Severity Reaction Status Date / Time No Known Allergies Allergy Verified 01/31/19 12:55 Medications: Current Medications Acetaminophen (Tylenol) 650 mg PO Q4H PRN PRN Reason: Headache/Fever/Mild Pain (1-3) Last Admin: 01/31/19 20:44 Dose: 650 mg Acetaminophen (Tylenol) 650 mg MA Q4H PRN PRN Reason: Headache/Fever/Mild Pain (1-3) Acetaminophen/Codeine Phosphate (Tylenol #3) 1 tab PO Q4H PRN PRN Reason: Mild Pain (1-3) Acetaminophen/Codeine Phosphate (Tylenol #3) 2 tab PO Q4H PRN PRN Reason: Moderate Pain (4-6) Acidophilus (Floranex) 1 tab PO DAILY [facility] Last Admin: 02/07/19 09:13 Dose: 1 tab Albuterol/Ipratropium (Duoneb) 3 ml NEB [id number] [facility] Last Admin: 02/07/19 14:02 Dose: 3 ml Amitriptyline HCl (Elavil) 25 mg PO HSPRN PRN PRN Reason: Insomnia Aspirin (Ecotrin) 325 mg PO DAILY [facility] Last Admin: 02/07/19 09:13 Dose: 325 mg Atorvastatin Calcium (Lipitor) 10 mg PO HS [facility] Last Admin: 02/06/19 20:18 Dose: 10 mg Benzonatate (Tessalon) 100 mg PO TID [facility] Last Admin: 02/07/19 09:13 Dose: 100 mg Bisacodyl (Dulcolax) 10 mg MA DAILYPRN PRN PRN Reason: Constipation Cefdinir (Omnicef) 300 mg PO BID [facility] Last Admin: 02/07/19 09:13 Dose: 300 mg Cholecalciferol (Vitamin D3) 1,000 units PO DAILY [facility] Last Admin: 02/07/19 09:13 Dose: 1,000 units Docusate Sodium (Colace) 100 mg PO BID [facility] Last Admin: 02/07/19 09:13 Dose: 100 mg Guaifenesin/Dextromethorphan (Robitussin Dm) 5 ml PO TID PRN PRN Reason: Cough Isosorbide Mononitrate (Imdur Er) 30 mg PO DAILY [facility] Last Admin: 02/07/19 09:13 Dose: 30 mg Melatonin (Melatonin) 3 mg PO HS PRN PRN Reason: Insomnia Last Admin: 02/06/19 20:18 Dose: 3 mg Miscellaneous Medication (Pharmacy To Dose) 1 each PO PRN PRN PRN Reason: Pharmacy to dose Mometasone Furoate/Formoterol Fumar (Dulera 200 Mcg/5 Mcg Inhaler) 2 puff INH BID-RT [facility] Last Admin: 02/07/19 08:22 Dose: 2 puff Morphine Sulfate (Morphine) 2 mg SLOW IVP Q5MIN PRN PRN Reason: Chest Pain Multivitamins (Theragran) 1 tab PO DAILY [facility] Last Admin: 02/07/19 09:13 Dose: 1 tab Multivitamins/Zinc (Stress 600 With Zinc) 1 tab PO DAILY [facility] Last Admin: 02/07/19 09:13 Dose: 1 tab Nitroglycerin (Nitrostat) 0.4 mg SL Q5MIN PRN PRN Reason: Chest Pain Nitroglycerin (Nitrostat) 0.4 mg SL Q5MIN PRN PRN Reason: Chest Pain Ondansetron HCl (Zofran) 4 mg IVP Q6H PRN PRN Reason: Nausea/Vomiting Pantoprazole Sodium (Protonix) 40 mg PO DAILY [facility] Last Admin: 02/07/19 09:13 Dose: 40 mg Polyethylene Glycol (Miralax) 17 gm PO DAILY [facility] Last Admin: 02/07/19 09:14 Dose: 17 gm Prednisone (Prednisone) 20 mg PO BID [facility] Last Admin: 02/07/19 09:13 Dose: 20 mg Warfarin Sodium (Coumadin) 1 mg PO 1700 [facility] Last Admin: 02/06/19 17:46 Dose: 1 mg
[2019-02-07] MEDS: Warfarin Sodium 1 MG TAB PO SCH (16:55)
[2019-02-07] MEDS: Albumin 25% 25 GM/100 ML BOT IVPB SCH ×2 (16:56→21:43)
--- NOTE | 2019-02-07 18:22 | CON ---
DATE OF CONSULTATION: HISTORY OF PRESENT ILLNESS: Mr. Goncalves is an 83-year-old white male, who was admitted for persistent cough. He has a history of pulmonary fibrosis and this was diagnosed about three years ago; however, in the last six months, his pulmonary fibrosis has worsened. He is currently on home O2. The feeling is he may have underlying infection. At that time, he was started on IV antibiotics. Repeated cardiac echo showed a decreased EF. He was evaluated by Cardiology at that time as well as by the cardiothoracic surgeon. This patient will eventually need a CABG, but for the moment due to his unstable condition, a CABG is placed on hold. During the last several days, his creatinine was said to have worsened. His creatinine back on February 03, 2019, was 1.02, it is now currently at 2.01. No urinalysis have been done yet. We are now being consulted for further management of his acute kidney injury. REVIEW OF SYSTEMS: Positive for chronic shortness of breath. No nausea. No vomiting. No diarrhea. No constipation. Positive for productive cough. No fever or chills. No gross hematuria. No dysuria. No urinary frequency. No abdominal pain. MEDICATIONS: 1. Tylenol 650 mg q.4 p.r.n. 2. Floranex one tablet daily. 3. Elavil 25 mg at bedtime p.r.n. 4. DuoNeb q.6. 5. Ecotrin 325 mg once daily. 6. Lipitor 10 mg at bedtime. 7. Tessalon Perles 100 mg p.o. t.i.d. 8. Omnicef 300 mg p.o. b.i.d. 9. Imdur ER 30 mg once a day. 10. Morphine sulfate 2 mg IV q.2 hours as needed. 11. Protonix 40 mg once a day. 12. Prednisone 20 mg p.o. b.i.d. 13. Normal saline, on hold. PAST MEDICAL HISTORY: History of pulmonary fibrosis, coronary artery disease, status post DVT, status post TIA, and skin cancer. PAST SURGICAL HISTORY: Status post prostate biopsy, status post prostatectomy, status post cardiac catheterization, status post colonoscopy, status post upper GI endoscopy. SOCIAL HISTORY: The patient is . Lives in [place]. 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 He is a . No smoking. Positive alcohol intake, one beer every other day. No IV drug abuse. ? blood transfusion. ALLERGIES: NONE. TRAUMA: None. IMMUNIZATION: Up-to-date. HOSPITALIZATIONS: Please see past medical history. FAMILY HISTORY: No family history of ESRD. PHYSICAL EXAMINATION: VITAL SIGNS: Blood pressure 109/72, heart rate 96 respiratory rate 23, O2 saturation is 91%. GENERAL: The patient is awake, alert, sitting comfortable, not in overt distress. SKIN: Adequate turgor. HEENT: He has a pinkish conjunctivae. Anicteric sclerae. No neck mass. No carotid bruits. No JVD. Throat clear. CHEST: No deformities. LUNGS: Bibasilar crackles. HEART: Normal sinus rhythm. No murmurs, gallops, or rubs. ABDOMEN: Globular, soft, and nontender. No masses. EXTREMITIES: No edema. No deformities. LABORATORY DATA: Laboratories of February 06, 2019; sodium 138, potassium 3.8, chloride 91, carbon dioxide 35, BUN 104, creatinine 2.01. On February 04, 2019; creatinine 1.55. On February 03, 2019; creatinine 1.02, calcium is 8.7. White count is 17.7, hemoglobin 14.2. DIAGNOSTIC DATA: Chest x-ray, increased lung markings. ASSESSMENT AND PLAN: 1. Acute kidney injury-consider hemodynamically-mediated renal dysfunction. According to the patient's daughter, the patient has been on diuretics. My bias is to start him on albumin infusion 25 g IV q.6 for the next 3 days. No indication for any dialytic intervention. Review urinalysis and urine chemistry. We will also be ordering a renal ultrasound with this patient rule out any possible renal obstruction. 2. Pulmonary fibrosis, supportive care. following. 3. Case discussed at length with the patient and his family. Job ID: [id number]
[2019-02-07] MEDS: Melatonin 3 MG TAB PO PRN (21:41)
[2019-02-07] MEDS: Atorvastatin Calcium 10 MG TAB PO SCH (21:41)
[2019-02-08] MEDS: Albumin 25% 25 GM/100 ML BOT IVPB SCH ×5 (04:18→22:51)
[2019-02-08 05:18] LABS: INR-International Normal Ratio 2.4; Prothrombin Time 26.4 SEC (12.0-14.7)
[2019-02-08] MEDS: Mometasone/Formoterol 120 PUFF INHALER INH SCH ×2 (06:30→19:32)
[2019-02-08 09:17] LABS: #Eosinphils 0.1 thou/uL (0.0-0.7); #Lymphocytes 0.6 thou/uL (1.20-3.40); #Monocytes 0.6 thou/uL (0.11-0.59); #Neutrophils 15.9 thou/uL (1.40-6.50); %Basophils 0.1 % (0.0-1.0); %Eosinophils 0.5 % (0.0-10.0); %Lymphocytes 3.5 % (21.0-51.0); %Monocytes 3.7 % (0.0-10.0); %Neutrophils 92.3 % (42.0-75.0); Mean Corpuscular Hemoglobin 31.2 pg (27.0-31.0); Mean Corpuscular Volume 94.7 fL (78.0-98.0); Mean Platelet Volume 8.2 fL (7.4-10.4); Platelet Count 213 thou/uL (130-400); RBC Distribution Width 11.6 % (11.5-14.5); Red Blood Cell (RBC) Count 3.84 mill/uL (4.70-6.10); White Blood Cell (WBC) Count 17.2 thou/uL (4.8-10.8)
[2019-02-08] MEDS: Polyethylene Glycol 3350 17 GM Packet PO SCH (09:36)
[2019-02-08] MEDS: Docusate 100 MG CAP PO SCH ×2 (09:37→21:10)
[2019-02-08] MEDS: Benzonatate 100 MG CAP PO SCH ×3 (09:37→21:09)
[2019-02-08] MEDS: Stress 600 With Zinc 1 TAB PO SCH (09:37)
[2019-02-08] MEDS: Multivit, Therapeutic 1 TAB PO SCH (09:37)
[2019-02-08] MEDS: Aspirin 325 mg Enteric Coated Tablet PO SCH (09:37)
[2019-02-08] MEDS: Cefdinir 300 MG CAP PO SCH ×2 (09:37→21:09)
[2019-02-08] MEDS: predniSONE 20 MG TAB PO SCH ×2 (09:37→21:10)
[2019-02-08] MEDS: Lactinex Tablet PO SCH (09:37)
[2019-02-08 09:42] LABS: ALT (SGPT) 30 U/L (8-55); AST (SGOT) 30 U/L (5-34); Albumin 4.4 g/dL (3.4-4.8); Alkaline Phosphatase 67 U/L (40-150); Anion Gap 15 mmol/L (10-20); BUN (Urea Nitrogen) 60 mg/dL (8.4-25.7); Bilirubin, Total 1.5 mg/dL (0.2-1.2); Calc. Creatinine Clearance 37 mL/min (70-130); Carbon Dioxide 30 mmol/L (23-31); Chloride 98 mmol/L (98-107); Estimated GFR-MDRD 51; Globulin 2.7 g/dL (2.4-3.5); Glucose 147 mg/dL (83-110); Potassium 4.2 mmol/L (3.5-5.1); Protein, Total 7.1 g/dL (5.8-8.1); Sodium 139 mmol/L (136-145)
--- NOTE | 2019-02-08 11:29 | PRG ---
DATE OF SERVICE: 02/08/2019 SUBJECTIVE: Mr. Goncalves is an 83-year-old white male, who was seen by the Renal Service for his acute kidney injury. At that time, I felt that he may have a hemodynamically-mediated renal dysfunction. He has been moderately diuresed in the last few days due to the shortness of breath. He did have a decreased EF. However, he has underlying history of pulmonary fibrosis. Normal saline has also been placed on hold. Currently, I gave him albumin infusion. Creatinine is improved this morning. He still has shortness of breath. OBJECTIVE: VITAL SIGNS: Blood pressure is 117/67, heart rate 91, respiratory rate 19, and pulse ox 91%. GENERAL: Noted to be awake, alert, comfortable, not in overt distress. SKIN: Adequate turgor. HEENT: He has a pinkish conjunctivae. Anicteric sclerae. No neck mass. No carotid bruits. No JVD. CHEST: No deformities. LUNGS: Decreased breath sounds. HEART: Normal sinus rhythm. No murmurs, gallops, or rubs. ABDOMEN: Globular, soft, nontender. No masses. EXTREMITIES: No edema, no deformities. MEDICATIONS: Mediations of February 08, 2019, were reviewed. LABORATORY DATA: Laboratories of February 08, 2019, showed white count 17.2, hemoglobin 12. Sodium 139, potassium 4.2, chloride 98, carbon dioxide 30, BUN 60, creatinine 1.33, glucose 147, calcium 10, bilirubin 1.5, AST 30, ALT 30. ASSESSMENT AND PLAN: 1. Acute kidney injury - consider hemodynamically-mediated renal dysfunction. Improved renal function with discontinuation of his diuretics. In addition, he received albumin infusion. My plan is to give him another day of albumin infusion at 25 g IV q.6. 2. Shortness of breath, multifactorial. Being treated for pneumonia as well for his underlying pulmonary fibrosis. 3. Decreased ejection fraction-Cardiology is following. In the future, if his overall medical condition stabilizes, he is being considered for a possible coronary artery bypass grafting? 4. Agree with current management. Recheck basic metabolic panel in a.m. Job ID: [id number]
[2019-02-08 13:32] LABS: Actual Bicarbonate (HCO3a) 33.7 mEq/L (22-28); Analyzer IN Cardio ER; Base Excess (BEa) 10.1 mEq/L (-2.0 to +3.0); CO2 Tension 41.4 mmHg (35.0-45.0); Calcium, Ionized 1.16 mmol/L (1.12-1.30); Carboxyhemoglobin (COHb) 0.9 gm% (0.0-3.0); Hemoglobin (Hb) 11.9 g/dL (14.0-18.0); Potassium - ABG Lab 3.75 mmol/L (3.70-5.30); pH, Arterial 7.53 (7.35-7.45)
[2019-02-08 13:33] LABS: O2 Tension (PaO2) 40.8 mmHg (> 60.0)
--- NOTE | 2019-02-08 16:11 | PDOC.PN ---
- Subjective Encounter Start Date: 02/08/19 Encounter Start Time: 07:30 Subjective: awake, is on nasal canula -: didn't sleep well last night due to high flow oxygen -: daughter at bedside - Objective Resuscitation Status - Order Detail: 01/31/19 15:07 Resuscitation Status Routine Resuscitation Status: FULL: Full Resuscitation Discussed with: ana maria NAIK Reviewed: Yes Vital Signs & Weight: Vital Signs (12 hours) Temp Pulse Pulse Pulse Resp BP BP 02/08/19 15:12 97.6 F 02/08/19 12:05 91 19 02/08/19 11:28 97.8 F 02/08/19 10:01 98 91 120/69 105/67 02/08/19 07:11 97.2 F L 02/08/19 06:26 84 25 H Pulse Ox Pulse Ox Pulse Ox 02/08/19 15:12 02/08/19 12:05 94 L 02/08/19 11:28 02/08/19 10:01 90 L 90 L 02/08/19 07:11 02/08/19 06:26 100 Weight Weight 135 lb 6.4 oz Most Recent Monitor Data Heart Rate from ECG 93 NIBP 92/56 NIBP BP-Mean 68 Respiration from ECG 13 SpO2 99 I&O: 02/07/19 02/08/19 02/09/19 06:59 06:59 06:59 Intake Total 2040 320 Output Total 1800 1100 Balance 240 -780 Result Diagrams: 02/08/19 08:59 02/08/19 08:59 Phys Exam - Physical Examination HEENT: PERRLA, sclera anicteric Neck: no JVD, supple Respiratory: no wheezing, no rales Cardiovascular: RRR, no significant murmur Gastrointestinal: soft, non-tender, positive bowel sounds Musculoskeletal: no edema, pulses present Neurological: non-focal, moves all 4 limbs Psychiatric: normal affect, A&O x 3 Dx/Plan (1) Acute on chronic respiratory failure with hypoxia Code(s): J96.21 - ACUTE AND CHRONIC RESPIRATORY FAILURE WITH HYPOXIA Status: Acute Comment: resolving (2) Acute renal failure Status: Acute Comment: resolving (3) Acute systolic CHF (congestive heart failure), NYHA class 3 Code(s): I50.21 - ACUTE SYSTOLIC (CONGESTIVE) HEART FAILURE Status: Acute Comment: EF 30-35%, diuretics held due to elevated creatinine (4) NSTEMI (non-ST elevated myocardial infarction) Code(s): I21.4 - NON-ST ELEVATION (NSTEMI) MYOCARDIAL INFARCTION Status: Acute Comment: s/p cath 02/03/2019, needs CABG if possible (5) Pneumonia Code(s): J18.9 - PNEUMONIA, UNSPECIFIED ORGANISM Status: Acute Comment: continuing antibiotics (6) Pulmonary fibrosis Code(s): J84.10 - PULMONARY FIBROSIS, UNSPECIFIED Status: Chronic (7) H/O deep venous thrombosis Code(s): Z86.718 - PERSONAL HISTORY OF OTHER VENOUS THROMBOSIS AND EMBOLISM Status: Acute - Plan is on omnicef, prednisone, nebs -: asp, lipitor, coumadin -: inr is therapeutic -: oob to chair as tolerated -: hemostable * . Review of Systems - Medications/Allergies Allergies/Adverse Reactions: Allergies Allergy/AdvReac Type Severity Reaction Status Date / Time No Known Allergies Allergy Verified 01/31/19 12:55 Medications: Current Medications Acetaminophen (Tylenol) 650 mg PO Q4H PRN PRN Reason: Headache/Fever/Mild Pain (1-3) Last Admin: 01/31/19 20:44 Dose: 650 mg Acetaminophen (Tylenol) 650 mg CO Q4H PRN PRN Reason: Headache/Fever/Mild Pain (1-3) Acetaminophen/Codeine Phosphate (Tylenol #3) 1 tab PO Q4H PRN PRN Reason: Mild Pain (1-3) Acetaminophen/Codeine Phosphate (Tylenol #3) 2 tab PO Q4H PRN PRN Reason: Moderate Pain (4-6) Acidophilus (Floranex) 1 tab PO DAILY [facility] Last Admin: 02/08/19 09:37 Dose: 1 tab Albumin Human (Albumin 25%) 25 gm IVPB Q6H [facility] Stop: 02/09/19 04:01 Last Admin: 02/08/19 09:58 Dose: Not Given Albuterol/Ipratropium (Duoneb) 3 ml NEB [id number] [facility] Last Admin: 02/08/19 12:05 Dose: 3 ml Amitriptyline HCl (Elavil) 25 mg PO HSPRN PRN PRN Reason: Insomnia Aspirin (Ecotrin) 325 mg PO DAILY [facility] Last Admin: 02/08/19 09:37 Dose: 325 mg Atorvastatin Calcium (Lipitor) 10 mg PO HS [facility] Last Admin: 02/07/19 21:41 Dose: 10 mg Benzonatate (Tessalon) 100 mg PO TID [facility] Last Admin: 02/08/19 09:37 Dose: 100 mg Bisacodyl (Dulcolax) 10 mg CO DAILYPRN PRN PRN Reason: Constipation Cefdinir (Omnicef) 300 mg PO BID [facility] Last Admin: 02/08/19 09:37 Dose: 300 mg Cholecalciferol (Vitamin D3) 1,000 units PO DAILY [facility] Last Admin: 02/08/19 09:37 Dose: 1,000 units Docusate Sodium (Colace) 100 mg PO BID [facility] Last Admin: 02/08/19 09:37 Dose: 100 mg Guaifenesin/Dextromethorphan (Robitussin Dm) 5 ml PO TID PRN PRN Reason: Cough Isosorbide Mononitrate (Imdur Er) 30 mg PO DAILY [facility] Last Admin: 02/08/19 09:37 Dose: 30 mg Melatonin (Melatonin) 3 mg PO HS PRN PRN Reason: Insomnia Last Admin: 02/07/19 21:41 Dose: 3 mg Miscellaneous Medication (Pharmacy To Dose) 1 each PO PRN PRN PRN Reason: Pharmacy to dose Mometasone Furoate/Formoterol Fumar (Dulera 200 Mcg/5 Mcg Inhaler) 2 puff INH BID-RT [facility] Last Admin: 02/08/19 06:30 Dose: 2 puff Morphine Sulfate (Morphine) 2 mg SLOW IVP Q5MIN PRN PRN Reason: Chest Pain Multivitamins (Theragran) 1 tab PO DAILY [facility] Last Admin: 02/08/19 09:37 Dose: 1 tab Multivitamins/Zinc (Stress 600 With Zinc) 1 tab PO DAILY [facility] Last Admin: 02/08/19 09:37 Dose: 1 tab Nitroglycerin (Nitrostat) 0.4 mg SL Q5MIN PRN PRN Reason: Chest Pain Nitroglycerin (Nitrostat) 0.4 mg SL Q5MIN PRN PRN Reason: Chest Pain Ondansetron HCl (Zofran) 4 mg IVP Q6H PRN PRN Reason: Nausea/Vomiting Pantoprazole Sodium (Protonix) 40 mg PO DAILY [facility] Last Admin: 02/08/19 09:37 Dose: 40 mg Polyethylene Glycol (Miralax) 17 gm PO DAILY [facility] Last Admin: 02/08/19 09:36 Dose: 17 gm Prednisone (Prednisone) 20 mg PO BID [facility] Last Admin: 02/08/19 09:37 Dose: 20 mg Warfarin Sodium (Coumadin) 1 mg PO 1700 [facility] Last Admin: 02/07/19 16:55 Dose: 1 mg
[2019-02-08] MEDS: Warfarin Sodium 1 MG TAB PO SCH (17:19)
[2019-02-08] MEDS: Atorvastatin Calcium 10 MG TAB PO SCH (21:09)
[2019-02-08] MEDS: Amitriptyline HCl 25 MG TAB PO PRN (21:10)
[2019-02-08] MEDS: Melatonin 3 MG TAB PO PRN (22:53)
[2019-02-09] MEDS: Albumin 25% 25 GM/100 ML BOT IVPB SCH (04:36)
[2019-02-09 05:21] LABS: #Eosinphils 0.1 thou/uL (0.0-0.7); #Lymphocytes 0.4 thou/uL (1.20-3.40); #Monocytes 0.5 thou/uL (0.11-0.59); #Neutrophils 15.6 thou/uL (1.40-6.50); %Basophils 0.1 % (0.0-1.0); %Eosinophils 0.6 % (0.0-10.0); %Lymphocytes 2.6 % (21.0-51.0); %Monocytes 3.1 % (0.0-10.0); %Neutrophils 93.6 % (42.0-75.0); Hemoglobin 9.8 g/dL (14.0-18.0); Mean Corpuscular HGB CONC 33.6 g/dL (32.0-36.0); Mean Corpuscular Hemoglobin 31.2 pg (27.0-31.0); Mean Corpuscular Volume 92.8 fL (78.0-98.0); Mean Platelet Volume 7.8 fL (7.4-10.4); Platelet Count 187 thou/uL (130-400); RBC Distribution Width 11.5 % (11.5-14.5); Red Blood Cell (RBC) Count 3.15 mill/uL (4.70-6.10); White Blood Cell (WBC) Count 16.7 thou/uL (4.8-10.8)
[2019-02-09 05:31] LABS: INR-International Normal Ratio 1.7
[2019-02-09 05:52] LABS: Anion Gap 12 mmol/L (10-20); BUN (Urea Nitrogen) 53 mg/dL (8.4-25.7); Calc. Creatinine Clearance 40 mL/min (70-130); Calcium 10.2 mg/dL (7.8-10.44); Carbon Dioxide 34 mmol/L (23-31); Chloride 99 mmol/L (98-107); Estimated GFR-MDRD 57; Glucose 148 mg/dL (83-110); Potassium 4.1 mmol/L (3.5-5.1); Sodium 141 mmol/L (136-145)
[2019-02-09] MEDS ORDERED: Albumin 25% 25 GM/100 ML BOT IVPB SCH (06:45)
[2019-02-09] MEDS: Mometasone/Formoterol 120 PUFF INHALER INH SCH ×2 (08:37→19:48)
[2019-02-09] MEDS: Cefdinir 300 MG CAP PO SCH ×2 (11:09→20:40)
[2019-02-09] MEDS: Lactinex Tablet PO SCH (11:09)
[2019-02-09] MEDS: predniSONE 20 MG TAB PO SCH ×2 (11:09→20:40)
[2019-02-09] MEDS: Multivit, Therapeutic 1 TAB PO SCH (11:10)
[2019-02-09] MEDS: Docusate 100 MG CAP PO SCH ×2 (11:10→20:40)
[2019-02-09] MEDS: Aspirin 325 mg Enteric Coated Tablet PO SCH (11:10)
[2019-02-09] MEDS: Benzonatate 100 MG CAP PO SCH ×3 (11:10→20:40)
[2019-02-09] MEDS: Polyethylene Glycol 3350 17 GM Packet PO SCH (11:11)
[2019-02-09] MEDS: Stress 600 With Zinc 1 TAB PO SCH (11:12)
[2019-02-09 12:08] VITALS: BP 133/84
--- NOTE | 2019-02-09 13:14 | PDOC.PN ---
- Subjective Encounter Start Date: 02/09/19 Encounter Start Time: 07:25 Subjective: is back on high flow from yesterday afternoon -: didn't sleep last night per daughter at bedside -: not in distress - Objective Resuscitation Status - Order Detail: 01/31/19 15:07 Resuscitation Status Routine Resuscitation Status: FULL: Full Resuscitation Discussed with: ana maria NAIK Reviewed: Yes Vital Signs & Weight: Vital Signs (12 hours) Temp Pulse Pulse Pulse Resp BP BP 02/09/19 10:51 97.0 F L 02/09/19 10:34 105 H 95 133/84 110/69 02/09/19 08:37 107 H 37 H 02/09/19 07:55 02/09/19 07:48 107 H 37 H 02/09/19 07:46 97.6 F 02/09/19 04:00 18 02/09/19 03:39 98.0 F 02/09/19 03:00 25 H 02/09/19 02:42 02/09/19 02:29 23 H 02/09/19 01:45 Pulse Ox Pulse Ox Pulse Ox 02/09/19 10:51 02/09/19 10:34 100 100 02/09/19 08:37 91 L 02/09/19 07:55 91 L 02/09/19 07:48 91 L 02/09/19 07:46 02/09/19 04:00 02/09/19 03:39 02/09/19 03:00 02/09/19 02:42 91 L 02/09/19 02:29 92 L 02/09/19 01:45 94 L Weight Weight 135 lb 1.6 oz Most Recent Monitor Data Heart Rate from ECG 98 NIBP 106/71 NIBP BP-Mean 82 Respiration from ECG 16 SpO2 100 I&O: 02/08/19 02/09/19 02/10/19 06:59 06:59 06:59 Intake Total 320 240 Output Total 1100 1150 Balance -780 -910 Result Diagrams: 02/09/19 05:06 02/09/19 05:06 Phys Exam - Physical Examination HEENT: PERRLA, sclera anicteric Neck: no JVD, supple Respiratory: no wheezing, no rales Cardiovascular: RRR, no significant murmur Gastrointestinal: soft, non-tender, positive bowel sounds Musculoskeletal: no edema, pulses present Neurological: non-focal, moves all 4 limbs Dx/Plan (1) Acute on chronic respiratory failure with hypoxia Code(s): J96.21 - ACUTE AND CHRONIC RESPIRATORY FAILURE WITH HYPOXIA Status: Acute Comment: resolving (2) Acute renal failure Status: Acute Comment: resolving (3) Acute systolic CHF (congestive heart failure), NYHA class 3 Code(s): I50.21 - ACUTE SYSTOLIC (CONGESTIVE) HEART FAILURE Status: Acute Comment: EF 30-35%, diuretics held due to elevated creatinine (4) NSTEMI (non-ST elevated myocardial infarction) Code(s): I21.4 - NON-ST ELEVATION (NSTEMI) MYOCARDIAL INFARCTION Status: Acute Comment: s/p cath 02/03/2019, needs CABG when his functional status and clinical condition improves (5) Pneumonia Code(s): J18.9 - PNEUMONIA, UNSPECIFIED ORGANISM Status: Acute (6) Pulmonary fibrosis Code(s): J84.10 - PULMONARY FIBROSIS, UNSPECIFIED Status: Chronic (7) H/O deep venous thrombosis Code(s): Z86.718 - PERSONAL HISTORY OF OTHER VENOUS THROMBOSIS AND EMBOLISM Status: Chronic - Plan is on omnicef, nebs, prednisone -: asp, lipitor, coumadin, imdur -: is deconditioned, needs to be oob to chair and mobilize more -: d/w daughter at bedside -: had good functional status prior to hospitalization * . Review of Systems - Medications/Allergies Allergies/Adverse Reactions: Allergies Allergy/AdvReac Type Severity Reaction Status Date / Time No Known Allergies Allergy Verified 01/31/19 12:55 Medications: Current Medications Acetaminophen (Tylenol) 650 mg PO Q4H PRN PRN Reason: Headache/Fever/Mild Pain (1-3) Last Admin: 01/31/19 20:44 Dose: 650 mg Acetaminophen (Tylenol) 650 mg [place] Q4H PRN PRN Reason: Headache/Fever/Mild Pain (1-3) Acetaminophen/Codeine Phosphate (Tylenol #3) 1 tab PO Q4H PRN PRN Reason: Mild Pain (1-3) Acetaminophen/Codeine Phosphate (Tylenol #3) 2 tab PO Q4H PRN PRN Reason: Moderate Pain (4-6) Acidophilus (Floranex) 1 tab PO DAILY [facility] Last Admin: 02/09/19 11:09 Dose: 1 tab Albuterol/Ipratropium (Duoneb) 3 ml NEB [id number] [facility] Last Admin: 02/09/19 07:48 Dose: 3 ml Amitriptyline HCl (Elavil) 25 mg PO HSPRN PRN PRN Reason: Insomnia Last Admin: 02/08/19 21:10 Dose: 25 mg Aspirin (Ecotrin) 325 mg PO DAILY [facility] Last Admin: 02/09/19 11:10 Dose: 325 mg Atorvastatin Calcium (Lipitor) 10 mg PO HS [facility] Last Admin: 02/08/19 21:09 Dose: 10 mg Benzonatate (Tessalon) 100 mg PO TID [facility] Last Admin: 02/09/19 11:10 Dose: 100 mg Bisacodyl (Dulcolax) 10 mg [place] DAILYPRN PRN PRN Reason: Constipation Cefdinir (Omnicef) 300 mg PO BID [facility] Last Admin: 02/09/19 11:09 Dose: 300 mg Cholecalciferol (Vitamin D3) 1,000 units PO DAILY [facility] Last Admin: 02/09/19 11:09 Dose: 1,000 units Docusate Sodium (Colace) 100 mg PO BID [facility] Last Admin: 02/09/19 11:10 Dose: 100 mg Guaifenesin/Dextromethorphan (Robitussin Dm) 5 ml PO TID PRN PRN Reason: Cough Isosorbide Mononitrate (Imdur Er) 30 mg PO DAILY [facility] Last Admin: 02/09/19 11:09 Dose: 30 mg Melatonin (Melatonin) 3 mg PO HS PRN PRN Reason: Insomnia Last Admin: 02/08/19 22:53 Dose: 3 mg Miscellaneous Medication (Pharmacy To Dose) 1 each PO PRN PRN PRN Reason: Pharmacy to dose Mometasone Furoate/Formoterol Fumar (Dulera 200 Mcg/5 Mcg Inhaler) 2 puff INH BID-RT [facility] Last Admin: 02/09/19 08:37 Dose: 2 puff Morphine Sulfate (Morphine) 2 mg SLOW IVP Q5MIN PRN PRN Reason: Chest Pain Multivitamins (Theragran) 1 tab PO DAILY [facility] Last Admin: 02/09/19 11:10 Dose: 1 tab Multivitamins/Zinc (Stress 600 With Zinc) 1 tab PO DAILY [facility] Last Admin: 02/09/19 11:12 Dose: 1 tab Nitroglycerin (Nitrostat) 0.4 mg SL Q5MIN PRN PRN Reason: Chest Pain Nitroglycerin (Nitrostat) 0.4 mg SL Q5MIN PRN PRN Reason: Chest Pain Ondansetron HCl (Zofran) 4 mg IVP Q6H PRN PRN Reason: Nausea/Vomiting Pantoprazole Sodium (Protonix) 40 mg PO DAILY [facility] Last Admin: 02/09/19 11:10 Dose: 40 mg Polyethylene Glycol (Miralax) 17 gm PO DAILY [facility] Last Admin: 02/09/19 11:11 Dose: 17 gm Prednisone (Prednisone) 20 mg PO BID [facility] Last Admin: 02/09/19 11:09 Dose: 20 mg Warfarin Sodium (Coumadin) 1 mg PO 1700 [facility] Last Admin: 02/08/19 17:19 Dose: 1 mg
--- NOTE | 2019-02-09 15:29 | PRG ---
DATE OF SERVICE: 02/09/2019 SUBJECTIVE: Mr. Goncalves was up all night, sleeping this morning. He is resting comfortably. He is afebrile. Heart rate is 99, respiratory rate is in the 30s. He is back on high-flow oxygen. Blood pressure 126/92. His exam is otherwise unchanged. I met with the daughter and answered all of her questions. LABORATORY DATA: White count is 16.7, hemoglobin 9.8, and platelets 187,000. Sodium 141, potassium 4.1, chloride 99, bicarb 34, BUN 53, and creatinine 1.22. IMPRESSION AND PLAN: 1. Idiopathic pulmonary fibrosis, possibly entering an accelerated phase. 2. Three-vessel coronary artery disease with congestive heart failure. 3. Pneumonia. He is not a candidate for surgery at this time. May never be a candidate for surgery. Continue to follow. Job ID: [id number]
--- NOTE | 2019-02-09 15:33 | PRG ---
DATE OF SERVICE: 02/09/2019 SUBJECTIVE: Mr. Goncalves was evaluated today. We are in the process of switching him from a high-flow to a nasal cannula. OBJECTIVE: VITAL SIGNS: His hemodynamics were stable. LUNGS: He had crackles in both lung bases. HEART: Regular rhythm. ABDOMEN: Soft. IMAGING STUDIES: I reviewed his chest x-rays. His latest x-ray is improved compared to his admission film. LABORATORY DATA: Lab work was reviewed. IMPRESSION: 1. Idiopathic pulmonary fibrosis. 2. Congestive heart failure. 3. Three-vessel coronary disease. 4. Cardiogenic pulmonary edema superimposed on pulmonary fibrosis, improved. PLAN: Continue current care. He is not a candidate at this time for any type of surgery. Job ID: [id number] [facility]
[2019-02-09] MEDS: Warfarin Sodium 1 MG TAB PO SCH (16:41)
[2019-02-09] MEDS: Atorvastatin Calcium 10 MG TAB PO SCH (20:40)
[2019-02-09] MEDS: Amitriptyline HCl 25 MG TAB PO PRN (20:42)
[2019-02-09] MEDS: Melatonin 3 MG TAB PO PRN (20:53)
[2019-02-10] MEDS ORDERED: EPINEPHrine 1 MG/ML AMP ONE (01:00)
[2019-02-10] MEDS ORDERED: EPINEPHrine 1 MG/10 ML Abboject SYRINGE ONE (01:00)
[2019-02-10] MEDS ORDERED: Magnesium 5 GM/10 ML Abboject SYRINGE ONE (01:00)
[2019-02-10] MEDS ORDERED: Sodium Bicarb 50 MEQ/50 ML Abboject 8.4% SYRINGE ONE (01:00)
[2019-02-10 05:16] LABS: INR-International Normal Ratio 1.3; Prothrombin Time 16.7 SEC (12.0-14.7)
[2019-02-10 07:10] VITALS: TEMP 98.3
[2019-02-10] MEDS: Mometasone/Formoterol 120 PUFF INHALER INH SCH (07:50)
--- NOTE | 2019-02-10 07:58 | PRG ---
DATE OF SERVICE: 02/08/2019 SUBJECTIVE: Malcolm Goncalves was tachypneic when I saw him this morning, but he had just been repositioned in bed. Apparently an hour earlier, he looked comfortable. We got a blood gas this morning just to be sure that there were no significant changes in his gas exchange because we were not getting good oximetry readings. He had a nasal cannula at 4 L. His pH is 7.53, CO2 of 41.2, pO2 was reported at 40. He is back on a high-flow cannula now. OBJECTIVE: LUNGS: Remarkable for crackles. HEART: Regular rhythm. S1, S2 normal. ABDOMEN: Soft and nontender. EXTREMITIES: Without asymmetry. IMAGING STUDIES: Chest radiograph on admission was reviewed and compared to the most recent admission. His radiograph has improved. IMPRESSION: 1. Underlying pulmonary fibrosis. 2. Cardiogenic pulmonary edema, radiographically improved. 3. Persistent hypoxemia. 4. Rfdzm-rx-nrxjent kidney disease. PLAN: Based on my evaluation of him at the bedside, there is no way he would survive coronary artery bypass grafting and wean from mechanical ventilation. Obviously, this would require serial evaluations, but he certainly is not stable for any type of surgery at this time. We will continue to follow the other physicians caring for him. Job ID: [id number]
[2019-02-10] MEDS ORDERED: predniSONE 20 MG TAB PO SCH (09:00)
[2019-02-10] MEDS ORDERED: Norepinephrine 8 MG/0.9% NS 250 ML ONE (09:03)
--- NOTE | 2019-02-10 09:05 | PRG ---
DATE OF SERVICE: 02/10/2019 SUBJECTIVE: Malcolm Goncalves remains weak, anxious. OBJECTIVE: VITAL SIGNS: Sats are 96% to 98% on high-flow 50 L, temperature 98, pulse 100, respiratory rate 17, and blood pressure 110/70. CHEST: Decreased breath sounds. No wheezing. CARDIAC: Normal S1 and S2. No gallops. ABDOMEN: No masses. IMPRESSION: 1. Pulmonary fibrosis. 2. Myocardial infarction. 3. Congestive heart failure. 4. Severe deconditioning. PLAN: The family to make a decision about home care. Code status is still a full code. We will have Palliative Care see the patient again. Once again, we will try and see we can downsize the high flow. Job ID: [id number]
--- NOTE | 2019-02-10 09:19 | PDOC.OP ---
Operative Note - Operative Note Operative Note: INDICATION: Acute Respiratory Failure PROCEDURE COOK HELPER JUICE: Beth Montes MD ATTENDING PHYSICIAN: Dr. Aceves, present for the entire procedure CONSENT: Consent was not obtained due to emergency situation and patient obtunded PROCEDURE SUMMARY: A time out was performed. My hands were washed immediately prior to the procedure. I wore protective gloves. The patient was placed on a equipment monitor phototypesetting including continuous pulse oximetry. Rapid Sequence Intubation was not used due to patient obtunded. Using a glidescope and a size 7.5 endotracheal tube with stylet, the patient was intubated on the 1st attempt. The stylet was removed and cuff balloon was inflated. At this time the cuff was found to be blown. A second 7.5 ET tube was inserted using glidescope and the patient was intubated on the 1st attempt. Appropriate endotracheal tube position was confirmed by direct visualization of vocal cord passage, fogging of the tube, CO2 colometric indicator and symmetric breath sounds. The tube was secured at 25 cm at the lips. Post intubation chest x-ray is pending at this time. The patient went into cardiac arrest. See code summary for full record.
--- NOTE | 2019-02-10 10:01 | PRG ---
DATE OF SERVICE: 02/10/2019 An 83-year-old gentleman, who at about 8:52 while eating breakfast had a cardiac arrest. CPR was initiated up until 9:32, prolonged CPR with multiple amps of epinephrine, bicarb, calcium, magnesium were given. His daughter at the bedside said that she wanted all supportive care. The patient has end-stage pulmonary fibrosis and severe three-vessel disease with severely depressed myocardial function. Therefore, CPR was continued over 30 minutes. They were never able to get adequate blood pressure. He was started on Levophed, eventually epinephrine drip as part of receiving multiple amps of epinephrine. He briefly had a rhythm and shortly after his cardiac compression cycles were stopped, he became bradycardic and asystolic. This happened multiple times. Eventually, the family agreed to stop resuscitation. The daughter was at the bedside. Time of demise is apparently 9:32 a.m. 2018. Final cause of demise is; 1. Cardiogenic shock, status post OR, status post cardiac cath, status post multiple vessel disease. 2. End-stage pulmonary fibrosis. 3. Superimposed pneumonia. Body will be released to home. No autopsy will be performed. Job ID: [id number]
--- NOTE | 2019-02-10 13:16 | PDOC.PN ---
- Subjective Encounter Start Date: 02/10/19 Encounter Start Time: 10:00 Subjective: saw him this am around 7.45am, was sleepy but woke up promptly -: was oriented, on high flow oxygen -: daughter at bedside - Objective Resuscitation Status - Order Detail: 01/31/19 15:07 Resuscitation Status Routine Resuscitation Status: FULL: Full Resuscitation Discussed with: patient HEENA Reviewed: Yes Vital Signs & Weight: Vital Signs (12 hours) Temp Pulse Resp Pulse Ox 02/10/19 07:49 93 L 02/10/19 07:48 98 02/10/19 07:46 100 17 98 02/10/19 07:09 98.3 F 02/10/19 04:06 32 H 91 L 02/10/19 03:35 97.9 F Weight Weight 134 lb 6 oz Most Recent Monitor Data Heart Rate from ECG 111 NIBP 116/70 NIBP BP-Mean 85 Respiration from ECG 25 SpO2 85 I&O: 02/09/19 02/10/19 02/11/19 06:59 06:59 06:59 Intake Total 240 180 Output Total 1150 1025 Balance -910 -845 Result Diagrams: 02/09/19 05:06 02/09/19 05:06 Phys Exam - Physical Examination HEENT: PERRLA, sclera anicteric Neck: supple Respiratory: no wheezing rhonchi+ Cardiovascular: RRR, no significant murmur Gastrointestinal: soft, non-tender, positive bowel sounds Musculoskeletal: no edema Neurological: non-focal, moves all 4 limbs Dx/Plan (1) Acute on chronic respiratory failure with hypoxia Code(s): J96.21 - ACUTE AND CHRONIC RESPIRATORY FAILURE WITH HYPOXIA Status: Acute (2) Acute renal failure Status: Acute Comment: resolving (3) Acute systolic CHF (congestive heart failure), NYHA class 3 Code(s): I50.21 - ACUTE SYSTOLIC (CONGESTIVE) HEART FAILURE Status: Acute Comment: EF 30-35%, diuretics held due to elevated creatinine (4) NSTEMI (non-ST elevated myocardial infarction) Code(s): I21.4 - NON-ST ELEVATION (NSTEMI) MYOCARDIAL INFARCTION Status: Acute Comment: s/p cath 02/03/2019, needs CABG when his functional status and clinical condition improves (5) Pneumonia Code(s): J18.9 - PNEUMONIA, UNSPECIFIED ORGANISM Status: Acute (6) Pulmonary fibrosis Code(s): J84.10 - PULMONARY FIBROSIS, UNSPECIFIED Status: Chronic (7) H/O deep venous thrombosis Code(s): Z86.718 - PERSONAL HISTORY OF OTHER VENOUS THROMBOSIS AND EMBOLISM Status: Chronic - Plan code aarti was called around 8.30am, he went into resp failure later cardiac -: -arrest, cpr was done for nearly 30 minutes, was declared at9.32am -: daughter at bedside -: was supervising code * . Review of Systems - Medications/Allergies Allergies/Adverse Reactions: Allergies Allergy/AdvReac Type Severity Reaction Status Date / Time No Known Allergies Allergy Verified 01/31/19 12:55
[2019-02-10] MEDS ORDERED: Warfarin Sodium 1.5 MG TAB PO SCH (17:00)
--- NOTE | 2019-02-10 18:37 | DIS ---
DATE OF ADMISSION: 01/31/2019 DATE OF DISCHARGE: 02/10/2019 SUMMARY DATE OF : 02/10/2019 at 9:32 a.m. PRIMARY CAUSE OF : Acute respiratory failure with hypoxia from 11 days, end-stage pulmonary fibrosis, pneumonia 11 days, non-ST elevation MA 11 days, CHF exacerbation with systolic dysfunction and ejection fraction of around 30% from 11 days, coronary artery disease needing coronary artery bypass graft. SECONDARY CAUSE OF : History of DVT, physical deconditioning. BRIEF COURSE During hospitalization: the patient initially was brought to emergency room for complaints of cough and shortness of breath. This was getting worse over the last 3 weeks or so prior to arrival here. The patient also had left-sided chest pain. He was admitted to [facility] and has had consultation with Dr. Aceves for Pulmonology. The patient's troponin was elevated peaking up to 15.7. He has had consultation with Dr. Brewster for Cardiology. Coronary angiogram done revealed multivessel coronary artery disease for cabg when he gets stable. The patient was on high-flow oxygen and broad-spectrum antibiotics in view of history of chronic pulmonary fibrosis which has been progressive. The patient has been off and on high-flow oxygen and was not able to wean off the same. This morning around 8:30, the patient was eating his breakfast and apparently choked on an egg. Code blue was called and CPR was initiated. With Heimlich maneuver, most of the inhaled eggs were coughed out. The patient ultimately went into cardiac arrest and respiratory failure. He was intubated and CPR was initiated. Nearly 30 minutes of effective CPR and ACLS protocol was done. His daughter at bedside requested to stop further resuscitation in view of prolonged CPR already. He was pronounced at 9:32 a.m. His body will be released to home per hospital protocol. Job ID: [id number] [facility]
== END 2019-02-10 09:32 | disposition expired | DRG 871 ==
LOC: SCSER 08:57 → IMCU/EMU 12:31 → CCU 02-10 09:59
PROVIDERS: ADMIT Internal Medicine; ATTEND Internal Medicine
PROC: 4A023N7 Measurement of Cardiac Sampling and Pressure, Left Heart, Percutaneous Approach (ICD-10-PCS; principal; 2019-02-03)
PROC: B2111ZZ Fluoroscopy of Multiple Coronary Arteries using Low Osmolar Contrast (ICD-10-PCS; 2019-02-03)
PROC: 5A1935Z Respiratory Ventilation, Less than 24 Consecutive Hours (ICD-10-PCS; 2019-02-10)
PROC: 0BH17EZ Insertion of Endotracheal Airway into Trachea, Via Natural or Artificial Opening (ICD-10-PCS; 2019-02-10)
PROC: 5A12012 Performance of Cardiac Output, Single, Manual (ICD-10-PCS; 2019-02-10)
PROC: 3E033XZ Introduction of Vasopressor into Peripheral Vein, Percutaneous Approach (ICD-10-PCS; 2019-02-10)
DX: A41.9 Sepsis, unspecified organism (principal); I21.4 Non-ST elevation (NSTEMI) myocardial infarction; J96.21 Acute and chronic respiratory failure with hypoxia; I50.21 Acute systolic (congestive) heart failure; J18.1 Lobar pneumonia, unspecified organism; N17.9 Acute kidney failure, unspecified; E87.2 Acidosis; D68.9 Coagulation defect, unspecified; R57.0 Cardiogenic shock; T17.928A Food in respiratory tract, part unspecified causing other injury, initial encounter; I25.10 Atherosclerotic heart disease of native coronary artery without angina pectoris; J84.10 Pulmonary fibrosis, unspecified; I25.5 Ischemic cardiomyopathy; K59.00 Constipation, unspecified; Z86.718 Personal history of other venous thrombosis and embolism; Z99.81 Dependence on supplemental oxygen; Z86.73 Personal history of transient ischemic attack (TIA), and cerebral infarction without residual deficits; Z79.01 Long term (current) use of anticoagulants; Z79.52 Long term (current) use of systemic steroids; E87.6 Hypokalemia; I46.2 Cardiac arrest due to underlying cardiac condition; Z85.828 Personal history of other malignant neoplasm of skin
CPT/HCPCS: 36415; 36416; 71045; 71046; 80048; 80053; 80061; 80076; 82553; 82805; 83605; 83690; 83735; 83880; 84484; 85025; 85610; 87040; 87070; 87205; 92950; 93005; 93306; 93458; 93798; 94640; 94760; 96361; 96365; 96375; C1769; J0171; J0692; J0696; J1644; J1650; J1940; J2920; J2930; J3430; J3475; J7050; J7620; P9047; Q9967